=== PATIENT | female | born 1960 | race Caucasian/White ===

== ENCOUNTER 2017-07-19 00:56 | Inpatient (IN) | payer OTHER ==
[2017-07-19] VITALS (13 sets, daily range): BP systolic 124–210; BP diastolic 69–110; PULSE 62–114; RESP 16–18; TEMP 96.5–99.1; O2SAT 89–100
[~2017-07-19] VITALS: Ht 160 cm; Wt 79.9 kg
[~2017-07-19 00:56] MED LIST: CYCL-36 PO; LEVO.2 PO; LISI-357 PO; LORTA5 PO; MEDR4PAK3 PO
--- NOTE | 2017-07-19 01:07 | PD ---
HPI Chief Complaint: Abdominal pain, vomiting Time Seen by Provider: 01:07 Travel History International Travel<30 days: No Contact w/Intl Traveler<30days: No Traveled to known affect area: No History of Present Illness HPI 57-year-old female came to the emergency room with history of vomiting and severe abdominal pain since this morning. Patient says she has vomited multiple times and has been unable to keep anything down. She appeared to be in significant distress when I saw her. She points the pain mainly to her right upper quadrant. She describes her vomitus to be clear to pale yellow color. No aggravating or relieving factors. Patient does drink and had 2 beers last night. She has never had this kind of pain before. She had 3 C- sections in the past. No history of diarrhea or any bowel movements today. [facility] Past Medical History Narrative Medical List of her past medical, surgical, social and family history reviewed from the nursing note. Cancer: Yes (THYROID) Hypertension: Yes Thyroid Disease: Yes (HYPO---THYROIDECTOMY) Menopausal: Yes Past Surgical History Section: Yes (X3) Endocrine Surgery: Yes (THYROIDECTOMY) Social History Alcohol Use: Yes ("WEEKENDS") Tobacco Use: Yes (1 PPD) Substance Use: No Allergies-Medications (Allergen,Severity, Reaction): Coded Allergies: No Known Allergies (Verified Allergy, Unknown, 07/19/17) Comments No known drug allergies. Reported Meds & Prescriptions Reported Meds & Active Scripts Active Reported Levothyroxine (Levothyroxine Sodium) 150 Mcg Tab 150 Mcg PO DAILY Lisinopril 20 Mg Tab 20 Mg PO DAILY Narrative Medication List of her home medications reviewed from the nursing note. Review of Systems Except as stated in HPI: all other systems reviewed are Neg Gastrointestinal: Positive: Nausea, Vomiting, Abdominal Pain Physical Exam Narrative GENERAL: Awake, alert, significant SKIN: Focused skin assessment warm/dry. HEAD: Atraumatic. Normocephalic. EYES: Pupils equal and round. No scleral icterus. No injection or drainage. ENT: No nasal bleeding or discharge. Mucous membranes pink and moist. NECK: Trachea midline. No JVD. CARDIOVASCULAR: Regular rate and rhythm. No murmur appreciated. RESPIRATORY: No accessory muscle use. Clear to auscultation. Breath sounds equal bilaterally. GASTROINTESTINAL: Abdomen is tense and distended. Significant tenderness in the right upper quadrant. Hyperactive bowel sounds. Hepatic and splenic margins not palpable. MUSCULOSKELETAL: No obvious deformities. No clubbing. No cyanosis. No edema. NEUROLOGICAL: Awake and alert. No obvious cranial nerve deficits. Motor grossly within normal limits. Normal speech. PSYCHIATRIC: Appropriate mood and affect; insight and judgment normal. Data Data Last Documented VS Orders Orders Ondansetron Inj (Zofran Inj) (07/19/17 01:41) Ondansetron Inj (Zofran Inj) (07/19/17 01:45) Sodium Chlor 0.9% 1000 Ml Inj (Ns 1000 M (07/19/17 01:45) Complete Blood Count With Diff (07/19/17 02:00) Comprehensive Metabolic Panel (07/19/17 02:00) Lipase (07/19/17 02:00) Prothrombin Time / Inr (Pt) (07/19/17 02:00) Urinalysis - C+S If Indicated (07/19/17 02:00) Ct Abd/Pel W/O Iv Contrast (07/19/17 02:00) Iv Access Insert/Monitor (07/19/17 02:00) Ecg Monitoring (07/19/17 02:00) Oximetry (07/19/17 02:00) Morphine Inj (Morphine Inj) (07/19/17 02:00) Ondansetron Inj (Zofran Inj) (07/19/17 02:00) Sodium Chlor 0.9% 1000 Ml Inj (Ns 1000 M (07/19/17 02:00) Sodium Chloride 0.9% Flush (Ns Flush) (07/19/17 02:00) Ng Gastric Tube Insert/Monitor (07/19/17 02:59) Sodium Chlor 0.9% 1000 Ml Inj (Ns 1000 M (07/19/17 03:15) Morphine Inj (Morphine Inj) (07/19/17 03:30) Admit Order (Ed Use Only) (07/19/17 04:07) Labs Laboratory Tests Test 07/19/17 01:20 White Blood Count 10.4 TH/MM3 Red Blood Count 4.90 MIL/MM3 Hemoglobin 16.1 GM/DL Hematocrit 47.0 % Mean Corpuscular Volume 95.8 FL Mean Corpuscular Hemoglobin 32.9 PG Mean Corpuscular Hemoglobin Concent 34.4 % Red Cell Distribution Width 13.6 % Platelet Count 332 TH/MM3 Mean Platelet Volume 8.4 FL Neutrophils (%) (Auto) 92.3 % Lymphocytes (%) (Auto) 5.6 % Monocytes (%) (Auto) 1.6 % Eosinophils (%) (Auto) 0.0 % Basophils (%) (Auto) 0.5 % Neutrophils # (Auto) 9.5 TH/MM3 Lymphocytes # (Auto) 0.6 TH/MM3 Monocytes # (Auto) 0.2 TH/MM3 Eosinophils # (Auto) 0.0 TH/MM3 Basophils # (Auto) 0.1 TH/MM3 CBC Comment AUTO DIFF Differential Comment AUTO DIFF CONFIRMED Platelet Estimate NORMAL Platelet Morphology Comment NORMAL Red Cell Morphology Comment NORMAL Prothrombin Time 10.3 SEC Prothromb Time International Ratio 1.0 RATIO Urine Collection Type CLEAN CATCH Urine Color YELLOW Urine Turbidity CLOUDY Urine pH 5.5 Urine Specific [place] GREATER/EQUAL 1.030 Urine Protein 30 mg/dL Urine Glucose (UA) NEG mg/dL Urine Ketones 40 mg/dL Urine Occult Blood SMALL Urine Nitrite NEG Urine Bilirubin NEG Urine Urobilinogen 0.2 MG/DL Urine Leukocyte Esterase NEG Urine RBC 0-3 /hpf Urine WBC 0-2 /hpf Urine Squamous Epithelial Cells > 8 /hpf Urine Amorphous Sediment LARGE Urine Bacteria FEW /hpf Urine Mucus MOD /lpf Microscopic Urinalysis Comment CULT NOT INDICATED Blood Urea Nitrogen 11 MG/DL Creatinine 0.87 MG/DL Random Glucose 134 MG/DL Total Protein 9.0 GM/DL Albumin 4.1 GM/DL Calcium Level 10.2 MG/DL Alkaline Phosphatase 73 U/L Aspartate Amino Transf (AST/SGOT) 18 U/L Alanine Aminotransferase (ALT/SGPT) 24 U/L Total Bilirubin 0.3 MG/DL Sodium Level 137 MEQ/L Potassium Level 3.7 MEQ/L Chloride Level 102 MEQ/L Carbon Dioxide Level 25.0 MEQ/L Anion Gap 10 MEQ/L Estimat Glomerular Filtration Rate 67 ML/MIN Lipase 587 U/L MDM Medical Decision Making Medical Screen Exam Complete: Yes Emergency Medical Condition: Yes Medical Record Reviewed: Yes Differential Diagnosis Small bowel obstruction, acute pancreatitis, acute cholecystitis Narrative Course 3:32 AM blood test results are back and patient has significant left shift in her CBC. Chemistry shows mild elevation of her lipase. CAT scan findings were discussed with the radiologist Dr. Morales and as per him it could be either a cecal volvulus versus cecal bascule. Either way these are bowel obstructions. I have ordered for an NG tube placement. Patient has been given pain medication and 3 L of IV fluid bolus for resuscitation. I discussed these findings with the general surgeon Dr. Dinesh Gonzalez. He wants the patient to be transferred to the main hospital and he will see the patient there. Awaiting for the hospitalist to call for admission and transfer. 4:10 AM I discussed the case with the hospitalist who wants the patient to be admitted under the manager human resources service. I discussed the case with Dr. Johnson who accepted the patient. Patient will be transferred soon. Critical Care Narrative Aggregate critical care time was 45 minutes. Time to perform other separately billable procedures was not included in the critical care time. My time did not include minutes spent treating any other patients simultaneously or on activities that did not directly contribute to the patient's treatment. The services I provided to this patient were to treat and/or prevent clinically significant deterioration that could result in: Cecal volvulus versus cecal bascule, fluid resuscitation I provided critical care services requiring my management, as noted below: Chart data review, documentation time, medication orders and management, vital sign assessments/reviewing monitor data, ordering and reviewing lab tests, ordering and interpreting/reviewing x-rays and diagnostic studies, care of the patient and discussion of the patient with the admitting physicians. Procedures EKG Prior to Arrival: No Physician Communication Physician Communication Dr. Dinesh Gonzalez, Dr. Morales, Dr. Johnson Diagnosis Primary Impression: Cecal volvulus Additional Impression: Dehydration Admitting Information Admitting Physician Requests: Deirdre Green MD Jul 19, 2017 01:07
[2017-07-19] MEDS ORDERED: LISI-515 PO (01:32)
[2017-07-19] MEDS ORDERED: LEVO150T7 PO (01:32)
[2017-07-19] MEDS ORDERED: ONDANSETRON HCL 4 MG/2 ML VIAL ONE (01:41)
[2017-07-19] MEDS ORDERED: SODIUM CHLOR 0.9% 1000 ML INJ 1,000 ML IV ONE ×2 (01:45→03:15)
[2017-07-19] MEDS ORDERED: ONDANSETRON HCL 4 MG/2 ML VIAL IV PUSH ONE (01:45)
[2017-07-19] MEDS ORDERED: ONDANSETRON HCL 4 MG/2 ML VIAL IVP ONE (02:00)
[2017-07-19] MEDS ORDERED: MORPHINE SULFATE 4 MG/ML INJ IV PUSH ONE ×2 (02:00→03:30)
[2017-07-19] MEDS ORDERED: SODIUM CHLOR 0.9% 1000 ML INJ 1,000 ML IV SCH (02:00)
[2017-07-19 02:17] LABS: AUTOMATED NEUTROPHIL # 9.5 TH/MM3 (1.8-7.7); BASOPHIL # 0.1 TH/MM3 (0-0.2); BASOPHIL % 0.5 % (0.0-2.0); BLOOD, URINE SMALL (NEG); GLUCOSE,URINE NEG (NEG); HEMOGLOBIN 16.1 GM/DL (11.6-15.3); KETONE, URINE 40 mg/dL (NEG); LYMPH % 5.6 % (9.0-44.0); LYMPHOCYTE # 0.6 TH/MM3 (1.0-4.8); MEAN CELL VOLUME 95.8 FL (80.0-100.0); MEAN CORPUSCULAR HEMOGLOBIN 32.9 PG (27.0-34.0); MEAN CORPUSCULAR HGB CONC 34.4 % (32.0-36.0); MEAN PLATELET VOLUME 8.4 FL (7.0-11.0); MONO % 1.6 % (0.0-8.0); MONOCYTE # 0.2 TH/MM3 (0-0.9); NEUT % 92.3 % (16.0-70.0); NITRITE,URINE NEG (NEG); PH, URINE 5.5 (5.0-8.5); PLATELET COUNT 332 TH/MM3 (150-450); RED CELL DISTRIBUTION WIDTH 13.6 % (11.6-17.2); URINE COLOR YELLOW (YELLW/STRAW); URINE LEUKOCYTE ESTERASE NEG (NEG); WHITE BLOOD COUNT 10.4 TH/MM3 (4.0-11.0)
[2017-07-19 02:21] LABS: BILIRUBIN, URINE NEG (NEG)
[2017-07-19 02:33] LABS: CHLORIDE 102 MEQ/L (98-107); SODIUM (NA) 137 MEQ/L (136-145)
[2017-07-19 02:37] LABS: ALBUMIN 4.1 GM/DL (3.4-5.0); BLOOD UREA NITROGEN 11 MG/DL (7-18); CALCIUM 10.2 MG/DL (8.5-10.1); GLUCOSE,RANDOM 134 MG/DL (74-106)
[2017-07-19 02:38] LABS: PROTHROMBIN TIME - PATIENT 10.3 SEC (9.8-11.6)
[2017-07-19 02:40] LABS: ALT (GPT) 24 U/L (10-53); AST (GOT) 18 U/L (15-37); CREATININE 0.87 MG/DL (0.50-1.00); GLOMERULAR FILTRATION RATE 67 ML/MIN (>89)
[2017-07-19 02:42] LABS: TOTAL BILIRUBIN ADULT 0.3 MG/DL (0.2-1.0)
[2017-07-19 02:43] LABS: ALKALINE PHOSPHATASE 73 U/L (45-117)
[2017-07-19 02:49] LABS: MUCUS URINE MOD /lpf (OCC)
[2017-07-19 02:50] LABS: AMORPHOUS SEDIMENT, URINE LARGE; BACTERIA, URINE FEW /hpf
[2017-07-19 02:51] LABS: RBC, URINE 0-3 /hpf (0-3); SQUAMOUS EPITHELIAL CELL URINE > 8 /hpf (0-5)
--- NOTE | 2017-07-19 02:51 | RADRPT ---
EXAM DATE/TIME: 07/19/2017 02:27 This report includes an Addendum and supersedes previous reports for this exam. [facility] COMPARISON: No previous studies available for comparison. INDICATIONS : Abdominal pain. Vomiting. ORAL CONTRAST: No oral contrast ingested. RADIATION DOSE: 10.86 CTDIvol (mGy) MEDICAL HISTORY : Hypertension. SURGICAL HISTORY : section. ENCOUNTER: Initial ACUITY: 1 day PAIN SCALE: 10/10 LOCATION: Bilateral abdomen. TECHNIQUE: Volumetric scanning of the abdomen and pelvis was performed. Using automated exposure control and ad justment of the mA and/or kV according to patient size, radiation dose was kept as low as reasonably achievable to obtain optimal diagnostic quality images. DICOM format image data is available electro nically for review and comparison. FINDINGS: The examination is abnormal demonstrating a prominent gas-distended loop of bowel underneath the righ t hemidiaphragm measuring 10.7 cm in width. This loop of bowel appears to represent the cecum and po rtion of the right colon. There is some twisting of the mesentery medially. Small bowel loops are n ot distended or stop the left colon and sigmoid colon are normal in appearance. There is a minimal a mount of free fluid in the cul-de-sac and there is some moderate free fluid between this distended lo op of bowel and the right lobe of the liver. The distended bowel does cause a flattening of the righ t lobe liver. No calcified gallstones. The kidneys, liver, spleen, and adrenal glands are unremarka ble for noncontrast technique. No evidence of free intraperitoneal gas. The visualized lower lungs are clear. Osseous structures are intact. CONCLUSION: Large gas-distended loop of bowel between the right lobe liver and hemidiaphragm probably representin g a displaced hypermobile cecum. No dilated loops of small bowel seen. No evidence of free intraper itoneal gas. Moderate amount of free fluid in the right upper quadrant and minimal free fluid in the pelvis. Rainer Mckeon MD on July 19, 2017 at 2:44 Board Certified Radiologist. This report was verified electronically. ADDENDUM: The case has been discussed with Dr. Caballero. The displaced the cecum is in the right upper quadrant underneath the right hemidiaphragm. This is atypical for mesento-axial cecal volvulus where a the d istended cecum is usually in the LEFT upper quadrant. There is, however a curved configuration to th e mesentery in the right upper quadrant and there may be some twisting of the inferior portion of the loop. Differential considerations include loop-type cecal volvulus and cecal bascule, which is also a variant of cecal volvulus.. Rainer Mckeon MD on July 19, 2017 at 3:07 Board Certified Radiologist. This report was verified electronically.
[2017-07-19 02:52] LABS: WBC, URINE 0-2 /hpf (0-5)
[2017-07-19] MEDS: SODIUM CHLORIDE 0.9% FLUSH 10 ML FLUSH IV FLUSH PRN (03:32)
--- NOTE | 2017-07-19 05:16 | RADRPT ---
EXAM DATE/TIME: 07/19/2017 04:42 [facility] COMPARISON: CT ABDOMEN & PELVIS W/O CONTRAST, July 19, 2017, 2:27. INDICATIONS : NG tube placement. MEDICAL HISTORY : Hypertension. SURGICAL HISTORY : section. ENCOUNTER: Initial ACUITY: 1 day PAIN SCORE: 10/10 LOCATION: Bilateral abdomen. FINDINGS: Frontal view of the lower chest and upper abdomen demonstrates gastric tube tip projecting within the stomach. The side port of the gastric tube is 2.2 above the level of the hemidiaphragm. Stable deg ree of distention of the cecum in the right upper quadrant. CONCLUSION: Gastric tube tip projects within the stomach however the side-port is 2.2 cm above the diaphragm. Rainer Mckeon MD on July 19, 2017 at 5:12 Board Certified Radiologist. This report was verified electronically.
[2017-07-19] MEDS ORDERED: LEVOFLOXACIN 500 MG PREMIX INJ 100 ML IV ONE (06:30)
[2017-07-19] MEDS ORDERED: METRONIDAZOLE 500 MG/100 ML ISONTONIC SOLN IV ONE (06:30)
[2017-07-19] MEDS ORDERED: POVIDONE IODINE 5% (ANTISEPSIS KIT) 4 APPLICATIONS EACH NARE PRN (06:45)
[2017-07-19] MEDS ORDERED: SODIUM CHLORID 0.9% 500 ML IV PRN (06:45)
[2017-07-19] MEDS ORDERED: METOPROLOL TARTRATE 25 MG TAB PO PRN (06:45)
[2017-07-19] MEDS ORDERED: CHLORHEXIDINE GLUCONATE 2 % 1 PACK (2 CLOTHS) TOPICAL PRN (06:45)
[2017-07-19] MEDS ORDERED: LACTATED RINGER'S 1000 ML IV PRN (06:45)
--- NOTE | 2017-07-19 06:48 | MB ---
cc: Dinesh Gonzalez MD DATE: 07/19/2017 REASON FOR CONSULTATION: Cecal volvulus with acute abdomen. HISTORY OF PRESENT ILLNESS: Ms. Fowler is a pleasant 57-year-old female who presented to the [facility] emergency department late last night with complaints of a 12-hour history of severe abdominal pain. She was seen and evaluated by Dr. Caballero and was worked up and found to have what is believed to be a cecal volvulus on CAT scan. The patient denies any previous abdominal problems. She states the pain began yesterday morning and was followed by multiple episodes of nausea and vomiting. She states the pain was 10/10. Pain was mainly in her right upper quadrant. She denies any sick contacts. She denies any fever or chills. She reports she did have 2 beers the night before. She reports her only abdominal surgical history is 3 C-sections. She denies any change in bowel habits. She reports her last bowel movement was yesterday. She denies any chest pain or shortness of breath. PAST MEDICAL HISTORY: Thyroid cancer. PAST SURGICAL HISTORY: She had a total thyroidectomy. She has also had 3 C-sections. MEDICATIONS: She takes lisinopril and Synthroid. ALLERGIES: SHE HAS NO KNOWN DRUG ALLERGIES. SOCIAL HISTORY: She admits to a daily cigarette use about a pack a day. She reports a weekend alcohol use. She lives here locally with her family. REVIEW OF SYSTEMS: Please see HPI. PHYSICAL EXAM: VITAL SIGNS: Temperature is 98.6, pulse is 90, blood pressure is 190/90, respiratory rate 20. GENERAL: This is a middle-aged female who appears uncomfortable. HEENT: Pupils equal, round and reactive to light. Sclerae are white. Oropharynx clear and moist. NECK: Supple. No masses. She has a low neck incision well healed. LUNGS: Clear to auscultation bilaterally. HEART: S1, S2. No murmur. ABDOMEN: Distended, tender in the right upper quadrant with voluntary guarding. No bowel sounds are noted. EXTREMITIES: Free range of motion x 4. NEUROLOGIC: She is alert and oriented x 3. LABORATORY DATA: White blood cell count 10, hemoglobin 16, platelet count is 332. Electrolytes are all within normal limits. Elevated glucose at 134. Lipase is 587. LFTs are normal. Imaging shows what appears to be a large distended loop of bowel in the right upper quadrant concerning for a cecal volvulus. No free air. There is some free fluid noted in the pelvis. IMPRESSION: Probable cecal volvulus. PLAN: Immediate exploratory laparotomy was discussed with the patient and she is agreeable. Operating room was notified and she will be brought there immediately. MD MANDO Hull/JOE , 06:33 AM , 06:46 AM
[2017-07-19] MEDS ORDERED: fentaNYL CITRATE 250 MCG/5 ML AMP ONE ×2 (06:50→08:15)
[2017-07-19] MEDS ORDERED: BUPIVACAINE/EPINEPHRINE 0.5% PF 30 ML VIAL ONE (07:11)
[2017-07-19] MEDS ORDERED: CHLORHEXIDINE GLUCONATE 2 % 1 PACK (2 CLOTHS) TOP PRN (07:30)
[2017-07-19] MEDS ORDERED: MISCELLANEOUS NURSING INFORMATION XX SCH (07:30)
[2017-07-19] MEDS ORDERED: RESP: ALBUTEROL 2.5 MG/IPRATROPIUM 0.5 MG NEB (PRN) INH (07:30)
[2017-07-19] MEDS: LACTATED RINGER'S 1000 ML INJ 1,000 ML IV SCH ×3 (08:00→20:43)
[2017-07-19] MEDS ORDERED: MORPHINE SULFATE 4 MG/ML INJ ONE (08:15)
[2017-07-19] MEDS ORDERED: SUGAMMADEX SODIUM 200 MG/2 ML VIAL IV PUSH ONE (08:53)
[2017-07-19] MEDS: cefTRIAXone INJ 1,000 MG in SODIUM CHLORIDE 0.9% INJ 100 ML IV SCH (09:00)
[2017-07-19] MEDS: FAMOTIDINE 20 MG/2 ML VIAL IV PUSH SCH ×2 (09:00→20:42)
[2017-07-19] MEDS ORDERED: DO NOT ADM ANY ANTICOAGULANT DRUGS PRN (09:04)
[2017-07-19] MEDS ORDERED: *morphine SULFATE 10 MG/ML PERIprocedure ONLY ONE (09:10)
[2017-07-19] MEDS ORDERED: Post-op Orders (for Pharmacy) XX ONE (09:15)
[2017-07-19] MEDS ORDERED: ONDANSETRON HCL 4 MG/2 ML VIAL IV PUSH PRN (09:15)
[2017-07-19] MEDS ORDERED: diphenhydrAMINE HCL 50 MG/ML VIAL IVP PRN (09:15)
[2017-07-19] MEDS ORDERED: KETOROLAC TROMETHAMINE 30 MG/ML (IVP) VIAL IVP PRN (09:15)
[2017-07-19] MEDS ORDERED: NALOXONE HCL 0.4 MG/ML AMP IV PUSH PRN (09:15)
--- NOTE | 2017-07-19 09:30 | MP ---
cc: Dinesh Gonzalez MD DATE OF OPERATION: 07/19/2017 DATE OF PROCEDURE: 07/19/2017. PREOPERATIVE DIAGNOSIS: Cecal volvulus. POSTOPERATIVE DIAGNOSIS: Cecal volvulus. PROCEDURE PERFORMED: 1. Exploratory laparotomy. 2. Right hemicolectomy with stapled anastomosis. SURGEON: Dinesh Gonzalez MD ANESTHESIA: General endotracheal. COMPLICATIONS: None. INDICATIONS FOR PROCEDURE: Ms. Fowler is a pleasant 57-year-old female who presented to the emergency department with acute onset of severe abdominal pain. The pain was mainly localized in the right upper quadrant. She underwent CT of the abdomen and pelvis which was concerning for a cecal volvulus. Stat surgical consultation was obtained. The patient was brought to [facility] where she was immediately seen and evaluated. She is advised to go to the operating room immediately for cecal volvulus as she was having a significant amount of pain associated with some nausea and vomiting. On exam, she had a very tender, obvious mass in the right upper quadrant, most consistent with a cecal volvulus. INTRAOPERATIVE FINDINGS: The patient had a cecal volvulus. DETAILS: The patient was identified, brought to the operating room, placed supine on the operating table. After adequate general endotracheal anesthesia was achieved, the abdomen was prepped and draped in standard surgical fashion. 0.25% Marcaine was injected in the skin and subcutaneous tissue. Upper limb midline incision was made. Dissection was carried down through subcutaneous tissue to the midline fascia. Midline fascia was then incised sharply. Peritoneum was then grasped, elevated, and divided with electrocautery Bovie. The abdomen was entered without any problem. An Yang wound retractor was then placed. Immediately, we could identify a very markedly enlarged cecum in the right upper quadrant. This was gently grasped and brought out and de-torsed. Cecum appeared viable; however, it was markedly distended. I elected to go ahead and resect it as this is the definitive surgical treatment of choice. Attention was directed to the terminal ileum which was divided with a MAU 55 stapler. The transverse colon just beyond the hepatic flexure was then divided with a MAU 55 stapler. The white line of Toldt was then mobilized using electrocautery Bovie. The mesentery of the colon was then taken down with the harmonic scalpel. Right colic vessels were identified and oversewn with a 2-0 silk. Dissection proceeded all the way up until the entire right colon was freed. Care was taken to identify and preserve the duodenum during the dissection. The colon was then sent to pathology for analysis. The abdominal cavity was then rinsed out with normal saline solution. Attention was now directed to the anastomosis. The terminal ileum and transverse colon were made at the [id number]. A 3-0 GI silk was used to hold them together proximally and distally. A small enterotomy was made on the tinea of the colon and the antimesenteric border of the small bowel. MAU 55 was used to staple the 2 edges together. The staple line was then inspected, found to be intact without any evidence of bleeding. Enterotomies were then closed with Allis clamps and then stapled with a TA-60 stapler. Staple lines were then oversewn with 3-0 GI silk. Mesenteric defect was then repaired with 3-0 GI silk in a [id number] fashion. The anastomosis was inspected, found to be widely patent. There was no evidence of bleeding. No evidence of intestinal leakage with direct pressure. The small bowel was briefly explored and there were no other gross abnormalities. Small bowel seemed to be actively peristalsing. It was fairly normal size and caliber. By manual palpation, I could feel no abdominal masses in the pelvis, the right upper quadrant or the left upper quadrant. NG tube was checked and positioned on the greater curvature of the stomach. Anastomosis was then checked the second time, was found to be intact. No evidence of leak, no evidence of bleeding. Mesenteric . The mesenteric defect was checked and found to be closed. Anastomosis was then placed in the right upper quadrant. Omentum was then placed over it. The abdominal cavity was then rinsed out with 2 liters of warm saline solution. All laparotomy instrument counts were then obtained and found to be correct. Attention was now directed to closure. Closure was accomplished using a #1 looped PDS in continuous running fashion. Subcutaneous tissue was copiously irrigated out and injected with an additional 0.25% Marcaine along the fascial edges. The wound was then closed with the skin stapling device. The patient tolerated the procedure well and was awakened and brought to recovery in stable condition. Dinesh Raquel Gonzalez MD [facility] , 09:09 AM , 09:29 AM
--- NOTE | 2017-07-19 10:44 | HHI.HP ---
HPI Service Critical Care Medicine Primary Care Physician No Primary Care Physician Admission Diagnosis Cecal volvulus Diagnosis: Chief Complaint: Abdominal pain and vomiting Travel History International Travel<30 Days: No Contact w/Intl Traveler <30 Da: No Traveled to Known Affected Are: No History of Present Illness 57-year-old lady with history of thyroid cancer status post thyroidectomy, and probable history of hypertension since patient is on lisinopril now presented to [place] emergency room complaining on severe abdominal pain that started yesterday morning, associated with multiple episodes of nausea and vomiting. 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 She was transferred to [facility] under the care of watch repairer service and Dr. Gonzalez from surgery was consulted. On arrival, patient was taken immediately to the operating room where she underwent exploratory laparotomy with right hemicolectomy with stapled anastomosis. Patient was seen postop in PACU, she is doing well, awake, abdominal pain is controlled with PEDIATRICIAN ACTIVE PRACTICE, denies shortness of breath, chest pain, palpitations. She is scheduled to go to the surgical floor. Anesthesia record reviewed, EBL 75 cc , received 1600 mL's crystalloid. Review of Systems Constitutional: DENIES: Fever, Weight loss, Chills, Dizziness Eyes: DENIES: Blurred vision, Diplopia, Vision loss, Double Vision Ears, nose, mouth, throat: DENIES: Hearing loss, Nasal discharge, Oral lesions , Throat pain Respiratory: DENIES: Cough, Wheezing, Shortness of breath Cardiovascular: DENIES: Chest pain, Palpitations, Lower Extremity Edema Gastrointestinal: COMPLAINS OF: Abdominal pain, Nausea, Vomiting Musculoskeletal: DENIES: Joint pain, Joint Swelling Hematologic/lymphatic: DENIES: Bruising Neurologic: DENIES: Headache, Seizures, Tremor Past Family Social History Allergies: Coded Allergies: No Known Allergies (Verified Allergy, Unknown, 07/19/17) Past Medical History Thyroid cancer Past Surgical History Thyroidectomy Reported Medications Reported Meds & Active Scripts Active Reported Levothyroxine (Levothyroxine Sodium) 150 Mcg Tab 150 Mcg PO DAILY Lisinopril 20 Mg Tab 20 Mg PO DAILY Active Ordered Medications Current Medications Medications (Trade) Dose Ordered Sig/Bacilio Route Start Time Stop Time Status Last Admin (NS Flush) 2 ml UNSCH PRN IV FLUSH 07/19/17 02:00 07/19/17 03:32 Lactated Ringer's 1,000 ml @ 30 mls/hr Q24H PRN IV 07/19/17 06:45 07/22/17 06:44 07/19/17 06:10 Sodium Chloride 500 ml @ 30 mls/hr [id number] PRN IV 07/19/17 06:45 07/22/17 06:44 (Lopressor) 25 mg PATROL SERGEANT PRN PO 07/19/17 06:45 07/22/17 06:44 (Betadine 5% Antisepsis Kit) 1 applic PATROL SERGEANT PRN EACH NARE 07/19/17 06:45 07/22/17 06:44 (Chlorhexidine 2% Cloth) 3 pack PATROL SERGEANT PRN TOPICAL 07/19/17 06:45 07/22/17 06:44 (Morphine Inj) 2 mg Q2H PRN IV PUSH 07/19/17 07:30 (Pepcid Inj) 20 mg Q12HR IV PUSH 07/19/17 09:00 07/19/17 09:00 (Duoneb Neb) 1 ampule Q4HR NEB PRN INH 07/19/17 07:30 Miscellaneous Information 1 [id number] XX 07/19/17 07:30 (Chlorhexidine 2% Cloth) 3 pack Taper DAILY@04 TOP 07/20/17 04:00 07/16/18 03:59 (Chlorhexidine 2% Cloth) 3 pack UNSCH PRN TOP 07/19/17 07:30 Ceftriaxone Sodium 1000 mg/ Sodium Chloride 100 ml @ 200 mls/hr Q24H IV 07/19/17 09:00 07/19/17 09:00 Metronidazole 100 ml @ 100 mls/hr Q8H IV 07/19/17 15:00 Lactated Ringer's 1,000 ml @ 100 mls/hr Q10H IV 07/19/17 08:00 07/19/17 08:00 (Toradol Inj) 30 mg Q6H PRN IVP 07/19/17 09:15 07/24/17 09:14 (Zofran Inj) 4 mg Q4H PRN IV PUSH 07/19/17 09:15 (Benadryl Inj) 50 mg Q6H PRN IVP 07/19/17 09:15 (Narcan Inj) 0.4 mg UNSCH PRN IV PUSH 07/19/17 09:15 (Morphine 1 Mg/ ml PEDIATRICIAN ACTIVE [facility]ACTICE) 30 mg UNSCH IV 07/19/17 09:15 PEDIATRICIAN ACT[facility]ACTICE Dosage Infused (Pha) 1 Q8HR .XX 07/19/17 14:00 Miscellaneous Information ALL NURSING DEPARTME... UNSCH PRN .XX 07/19/17 09:04 07/20/17 09:03 Family History Unremarkable Social History Smoker, drinks alcohol on the weekends, no drugs Physical Exam Vital Signs Vital Signs Date Time Temp Pulse Resp B/P (MAP) Pulse Ox O2 Delivery O2 Flow Rate FiO2 07/19/17 09:00 97.9 109 20 180/84 (116) 92 Nasal Cannula 2 07/19/17 05:28 07/19/17 04:55 94 16 186/95 (125) 95 Room Air 07/19/17 04:20 98.6 92 16 189/93 (125) 95 Room Air 07/19/17 03:54 16 07/19/17 03:50 98 16 178/98 (124) 94 Room Air 07/19/17 03:20 96 16 185/93 (123) 97 Room Air 07/19/17 02:50 88 16 175/97 (123) 96 Room Air 07/19/17 02:35 16 07/19/17 01:25 16 07/19/17 01:15 114 18 199/110 (139) 98 Room Air 07/19/17 01:10 18 98 Room Air 07/19/17 01:02 97.5 110 18 210/102 (138) 100 Physical Exam General - middle-aged lady, awake, in no distress HEENT - pupils equal, reactive, sclerae anicteric, neck supple, no nuchal rigidity, neck veins not distended, no carotid bruit, MMM CV - regular S1, S2, no murmurs Chest - clear b/l, good air entry, no wheezes Abdomen - soft, tender, distended, BS present, surgical incision site with clean dressing, no hepatomegaly, no splenomegaly Skin - no rashes, no cyanosis Extremities - warm and well perfused, no edema, + peripheral pulses, no clubbing Neuro -awake, alert, oriented 3, moves all extremities Laboratory Laboratory Tests Test 07/19/17 01:20 White Blood Count 10.4 Red Blood Count 4.90 Hemoglobin 16.1 Hematocrit 47.0 Mean Corpuscular Volume 95.8 Mean Corpuscular Hemoglobin 32.9 Mean Corpuscular Hemoglobin Concent 34.4 Red Cell Distribution Width 13.6 Platelet Count 332 Mean Platelet Volume 8.4 Neutrophils (%) (Auto) 92.3 Lymphocytes (%) (Auto) 5.6 Monocytes (%) (Auto) 1.6 Eosinophils (%) (Auto) 0.0 Basophils (%) (Auto) 0.5 Neutrophils # (Auto) 9.5 Lymphocytes # (Auto) 0.6 Monocytes # (Auto) 0.2 Eosinophils # (Auto) 0.0 Basophils # (Auto) 0.1 CBC Comment AUTO DIFF Differential Comment AUTO DIFF CONFIRMED Platelet Estimate NORMAL Platelet Morphology Comment NORMAL Red Cell Morphology Comment NORMAL Prothrombin Time 10.3 Prothromb Time International Ratio 1.0 Urine Collection Type CLEAN CATCH Urine Color YELLOW Urine Turbidity CLOUDY Urine pH 5.5 Urine Specific [place] GREATER/EQUAL 1.030 Urine Protein 30 Urine Glucose (UA) NEG Urine Ketones 40 Urine Occult Blood SMALL Urine Nitrite NEG Urine Bilirubin NEG Urine Urobilinogen 0.2 Urine Leukocyte Esterase NEG Urine RBC 0-3 Urine WBC 0-2 Urine Squamous Epithelial Cells > 8 Urine Amorphous Sediment LARGE Urine Bacteria FEW Urine Mucus MOD Microscopic Urinalysis Comment CULT NOT INDICATED Blood Urea Nitrogen 11 Creatinine 0.87 Random Glucose 134 Total Protein 9.0 Albumin 4.1 Calcium Level 10.2 Alkaline Phosphatase 73 Aspartate Amino Transf (AST/SGOT) 18 Alanine Aminotransferase (ALT/SGPT) 24 Total Bilirubin 0.3 Sodium Level 137 Potassium Level 3.7 Chloride Level 102 Carbon Dioxide Level 25.0 Anion Gap 10 Estimat Glomerular Filtration Rate 67 Lipase 587 Result Diagram: 07/19/1711907/19/17 0120 Imaging Last Impressions Abdomen/Pelvis CT 07/19/17 0200 Signed Impressions: Service Date/Time: Wednesday, July 19, 2017 02:27 - CONCLUSION: Large gas-distended loop of bowel between the right lobe liver and hemidiaphragm probably representing a displaced hypermobile cecum. No dilated loops of small bowel seen. No evidence of free intraperitoneal gas. Moderate amount of free fluid in the right upper quadrant and minimal free fluid in the pelvis. Rainer Mckeon MD ADDENDUM: The case has been discussed with Dr. Caballero. The displaced the cecum is in the right upper quadrant underneath the right hemidiaphragm. This is atypical for mesento-axial cecal volvulus where a the distended cecum is usually in the LEFT upper quadrant. There is, however a curved configuration to the mesentery in the right upper quadrant and there may be some twisting of the inferior portion of the loop. Differential considerations include loop-type cecal volvulus and cecal bascule, which is also a variant of cecal volvulus.. Rainer Mckeon MD Abdomen X-Ray 07/19/17 0000 Signed Impressions: Service Date/Time: Wednesday, July 19, 2017 04:42 - CONCLUSION: Gastric tube tip projects within the stomach however the side-port is 2.2 cm above the diaphragm. Rainer Mckeon MD Caprini VTE Risk Assessment Caprini VTE Risk Assessment: Mod/High Risk (score >= 2) Caprini Risk Assessment Model Point Value = 1 Point Value = 2 Point Value = 3 Point Value = 5 Age 41-60 Minor surgery BMI > 25 kg/m2 Swollen legs Varicose veins or History of unexplained or recurrent spontaneous Oral contraceptives or hormone replacement Sepsis (< 1 month) Serious lung disease, including pneumonia (< 1 month) Abnormal pulmonary function Acute myocardial infarction Congestive heart failure (< 1 month) History of inflammatory bowel disease Medical patient at bed rest Age 61-74 Arthroscopic surgery Major open surgery (> 45 min) Laparoscopic surgery (> 45 min) Malignancy Confined to bed (> 72 hours) Immobilizing plaster cast Central venous access Age >= 75 History of VTE Family history of VTE Factor V Leiden Prothrombin [id number] Lupus anticoagulant Anticardiolipin antibodies Elevated serum homocysteine Heparin-induced thrombocytopenia Other congenital or acquired thrombophilia Stroke (< 1 month) Elective arthroplasty Hip, pelvis, or leg fracture Acute spinal cord injury (< 1 month) Prophylaxis Regimen Total Risk Factor Score Risk Level Prophylaxis Regimen 0-1 Low Early ambulation 2 Moderate Order ONE of the following: *Sequential Compression Device (SCD) *Heparin 5000 units SQ BID 3-4 Higher Order ONE of the following medications: *Heparin 5000 units SQ TID *Enoxaparin/Lovenox 40 mg SQ daily (WT < 150 kg, CrCl > 30 mL/min) *Enoxaparin/Lovenox 30 mg SQ daily (WT < 150 kg, CrCl > 10-29 mL/min) *Enoxaparin/Lovenox 30 mg SQ BID (WT < 150 kg, CrCl > 30 mL/min) AND/OR *Sequential Compression Device (SCD) 5 or more Highest Order ONE of the following medications: *Heparin 5000 units SQ TID (Preferred with Epidurals) *Enoxaparin/Lovenox 40 mg SQ daily (WT < 150 kg, CrCl > 30 mL/min) *Enoxaparin/Lovenox 30 mg SQ daily (WT < 150 kg, CrCl > 10-29 mL/min) *Enoxaparin/Lovenox 30 mg SQ BID (WT < 150 kg, CrCl > 30 mL/min) AND *Sequential Compression Device (SCD) Assessment and Plan Assessment and Plan 1. 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 History of thyroid cancer post thyroidectomy, on hormone replacement 3. Probably history of hypertension 1. Gentle IV hydration 2. Continue antibiotics for now but anticipate very short course. Probably can be stopped over the next 2 days 3. Monitor urine output 4. Pain control with morphine PEDIATRICIAN ACTIVE PRACTICE 5. Incentive spirometry 6. Restart Synthroid when able to take p.o. 7. DVT prophylaxis with SCDs. Start Lovenox when okay with surgery 8. GI prophylaxis with famotidine 9. N.p.o. for now We will ask hospitalist service to take over the medical management of patient. Please call back with any questions or if additional help is needed. Thank you Anthony Sandoval MD Jul 19, 2017 10:44
[2017-07-19] MEDS ORDERED: ROCURONIUM INJ 50 MG/5 ML SYRINGE IV PUSH ONE (12:00)
[2017-07-19] MEDS ORDERED: SUCCINYLCHOLINE CHLORIDE 100 MG/5 ML SYRINGE IV PUSH ONE (12:00)
[2017-07-19] MEDS ORDERED: ONDANSETRON HCL 4 MG/2 ML VIAL IV ONE (12:00)
[2017-07-19] MEDS ORDERED: NEOSTIGMINE 5 MG/5 ML SYRINGE IV PUSH ONE (12:00)
[2017-07-19] MEDS ORDERED: PHENYLEPH/NS 1000 MCG/10 ML SYR IV ONE (12:00)
[2017-07-19] MEDS ORDERED: NORMOSOL R INJ 1,000 ML IV ONE (12:00)
[2017-07-19] MEDS ORDERED: LIDOCAINE HCL 1% PF 5 ML SYRINGE OTHER ONE (12:00)
[2017-07-19] MEDS ORDERED: GLYCOPYRROLATE 1 MG/5 ML SYRINGE IV PUSH ONE (12:00)
[2017-07-19] MEDS ORDERED: DEXAMETHASONE SOD PHOS 4 MG/ML VIAL IV ONE (12:00)
[2017-07-19] MEDS ORDERED: PROPOFOL 200 MG/20 ML AMP IV ONE (12:00)
[2017-07-19] MEDS: MORPHINE SULFATE 30 MG/30 ML PCA IV SCH ×2 (12:03→22:53)
[2017-07-19] MEDS: PCA - TOTAL MG MORPHINE DELIVERED PER SHIFT SCH ×2 (14:00→21:52)
[2017-07-19] MEDS: metroNIDAZOLE 500 MG INJ 100 ML IV SCH ×2 (15:59→22:52)
[2017-07-20] VITALS (7 sets, daily range): BP systolic 102–213; BP diastolic 58–95; PULSE 62–85; RESP 14–20; TEMP 96.6–97.9; O2SAT 91–97
[2017-07-20] MEDS: CHLORHEXIDINE GLUCONATE 2 % 1 PACK (2 CLOTHS) TOP SCH ×2 (02:21→22:46)
[2017-07-20] MEDS: LACTATED RINGER'S 1000 ML INJ 1,000 ML IV SCH ×2 (02:21→11:49)
[2017-07-20 04:51] LABS: AUTOMATED NEUTROPHIL # 7.1 TH/MM3 (1.8-7.7); BASOPHIL % 0.2 % (0.0-2.0); EOSINOPHIL % 0.2 % (0.0-4.0); HEMATOCRIT 34.3 % (35.0-46.0); HEMOGLOBIN 11.6 GM/DL (11.6-15.3); LYMPH % 11.5 % (9.0-44.0); MEAN CELL VOLUME 98.3 FL (80.0-100.0); MEAN CORPUSCULAR HEMOGLOBIN 33.2 PG (27.0-34.0); MEAN CORPUSCULAR HGB CONC 33.8 % (32.0-36.0); MONOCYTE # 0.6 TH/MM3 (0-0.9); NEUT % 81.1 % (16.0-70.0); PLATELET COUNT 236 TH/MM3 (150-450); RED BLOOD COUNT 3.49 MIL/MM3 (4.00-5.30); RED CELL DISTRIBUTION WIDTH 13.8 % (11.6-17.2); WHITE BLOOD COUNT 8.7 TH/MM3 (4.0-11.0)
[2017-07-20 05:13] LABS: ALBUMIN 2.9 GM/DL (3.4-5.0); AST (GOT) 30 U/L (15-37); BICARBONATE 26.7 MEQ/L (21.0-32.0); BLOOD UREA NITROGEN 9 MG/DL (7-18); CALCIUM 8.5 MG/DL (8.5-10.1); CHLORIDE 110 MEQ/L (98-107); GLOMERULAR FILTRATION RATE 103 ML/MIN (>89); GLUCOSE,RANDOM 93 MG/DL (74-106); MAGNESIUM 1.8 MG/DL (1.5-2.5); SODIUM (NA) 144 MEQ/L (136-145)
[2017-07-20 05:15] LABS: ALT (GPT) 18 U/L (10-53); PHOSPHORUS 2.4 MG/DL (2.5-4.9)
[2017-07-20 05:17] LABS: ALKALINE PHOSPHATASE 48 U/L (45-117); TOTAL BILIRUBIN ADULT 0.4 MG/DL (0.2-1.0); TOTAL PROTEIN 6.1 GM/DL (6.4-8.2)
[2017-07-20] MEDS: PCA - TOTAL MG MORPHINE DELIVERED PER SHIFT SCH ×3 (06:00→22:00)
[2017-07-20] MEDS: metroNIDAZOLE 500 MG INJ 100 ML IV SCH ×3 (06:37→22:46)
[2017-07-20] MEDS: cefTRIAXone INJ 1,000 MG in SODIUM CHLORIDE 0.9% INJ 100 ML IV SCH (10:20)
[2017-07-20] MEDS: FAMOTIDINE 20 MG/2 ML VIAL IV PUSH SCH ×2 (10:20→20:49)
[2017-07-20] MEDS: MORPHINE SULFATE 30 MG/30 ML PCA IV SCH (11:47)
[2017-07-20] MEDS: LISINOPRIL 20 MG TAB PO SCH (11:49)
--- NOTE | 2017-07-20 14:46 | HHI.PR ---
Subjective Subjective Notes Resting in bed Wants NGT out Objective Vitals/I&O Vital Signs Date Time Temp Pulse Resp B/P (MAP) Pulse Ox O2 Delivery O2 Flow Rate FiO2 07/20/17 12:00 97.8 85 20 181/86 (117) 94 07/19/17 22:20 Nasal Cannula 1.00 Labs Laboratory Tests Test 07/20/17 03:50 White Blood Count 8.7 Red Blood Count 3.49 Hemoglobin 11.6 Hematocrit 34.3 Mean Corpuscular Volume 98.3 Mean Corpuscular Hemoglobin 33.2 Mean Corpuscular Hemoglobin Concent 33.8 Red Cell Distribution Width 13.8 Platelet Count 236 Mean Platelet Volume 8.0 Neutrophils (%) (Auto) 81.1 Lymphocytes (%) (Auto) 11.5 Monocytes (%) (Auto) 7.0 Eosinophils (%) (Auto) 0.2 Basophils (%) (Auto) 0.2 Neutrophils # (Auto) 7.1 Lymphocytes # (Auto) 1.0 Monocytes # (Auto) 0.6 Eosinophils # (Auto) 0.0 Basophils # (Auto) 0.0 CBC Comment DIFF FINAL Differential Comment Blood Urea Nitrogen 9 Creatinine 0.60 Random Glucose 93 Total Protein 6.1 Albumin 2.9 Calcium Level 8.5 Phosphorus Level 2.4 Magnesium Level 1.8 Alkaline Phosphatase 48 Aspartate Amino Transf (AST/SGOT) 30 Alanine Aminotransferase (ALT/SGPT) 18 Total Bilirubin 0.4 Sodium Level 144 Potassium Level 3.7 Chloride Level 110 Carbon Dioxide Level 26.7 Anion Gap 7 Estimat Glomerular Filtration Rate 103 Cardiovascular: Regular Lungs: Clear Abdomen: Other (Dry dressing in place ), Post-op tenderness Extremities: No edema Narrative Exam Moreno in place A/P Assessment and Plan 57 year old female POD1 ex lap for cecal volvulus -DC NGT -Clear liquids -DC More[place] -OOB and mobilize -BATTERY STARTER for pain control -Decrease IVF Nanette Roman TONGUE AND GROOVE MACHINE SETTER/Farm Manager TONGUE AND GROOVE MACHINE SETTER Jul 20, 2017 14:46
--- NOTE | 2017-07-20 14:54 | HHI.PR ---
Subjective Remarks Patient seen this morning around 9 AM. She says she is feeling all right. Reports abdominal pain is controlled. Denies any chest pain or shortness of breath. No bowel movements or flatus yet Objective Vital Signs Date Time Temp Pulse Resp B/P (MAP) Pulse Ox O2 Delivery O2 Flow Rate FiO2 07/20/17 12:00 97.8 85 20 181/86 (117) 94 07/20/17 11:47 17 07/20/17 11:34 16 07/20/17 08:00 96.9 73 20 143/73 (96) 97 07/20/17 04:00 97.5 73 16 147/78 (101) 93 07/20/17 00:20 97.9 71 16 213/95 (134) 92 07/19/17 22:20 95 Nasal Cannula 1.00 07/19/17 16:47 96.9 71 18 128/79 (95) 97 I/O 07/19/17 07/19/17 07/19/17 07/20/17 07/20/17 07/20/17 07:00 15:00 23:00 07:00 15:00 23:00 Intake Total 3000 ml 1600 ml 1445 ml Output Total 110 ml 145 ml 300 ml 300 ml Balance 2890 ml 1455 ml -300 ml 1145 ml Intake IV Total 3000 ml 1600 ml 1445 ml Output Urine Total 70 ml Gastric Drainage Total 110 ml 300 ml 300 ml Estimated Blood Loss 75 ml Result Diagram: 07/20/17 0350 07/20/17 0350 Objective Remarks GENERAL: sitting up in bed. Appears comfortable. Alert and oriented 3. SKIN: Warm and dry. HEAD: Normocephalic. EYES: No scleral icterus. No injection or drainage. NECK: Supple, trachea midline. No JVD. CARDIOVASCULAR: Regular rate and rhythm without murmurs, gallops, or rubs. RESPIRATORY: Breath sounds equal bilaterally. No accessory muscle use. GASTROINTESTINAL: Abdomen soft, non-tender, nondistended. MUSCULOSKELETAL: No cyanosis, or edema. BACK: Nontender without obvious deformity. No CVA tenderness. 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 // History of thyroid cancer post thyroidectomy, on hormone replacement = Continue thyroid hormone. // history of hypertension = 07/20. Systolic blood pressure elevated in the 180s start home lisinopril. Continue to monitor blood pressure //Tobacco use. Divided cessation counseling. Patient is not at all interested //Binge drinking disorder without withdrawal. Patient counseled on appropriate alcohol limits. Patient again not interested. //Prophylaxis. SCDs. Anticoagulation as per surgical service Discharge Planning Awaiting return of bowel function. Home with home health when cleared by general surgery. Martinez Toscano MD Jul 20, 2017 14:54
[2017-07-21] VITALS (7 sets, daily range): BP systolic 117–188; BP diastolic 68–99; PULSE 65–85; RESP 16–18; TEMP 96.9–98.8; O2SAT 91–98
[2017-07-21] MEDS: LACTATED RINGER'S 1000 ML INJ 1,000 ML IV SCH ×3 (04:59→20:30)
[2017-07-21] MEDS: PCA - TOTAL MG MORPHINE DELIVERED PER SHIFT SCH ×2 (06:00→22:00)
[2017-07-21] MEDS: LEVOTHYROXINE SODIUM 150 MCG TAB PO SCH (06:00)
[2017-07-21 06:20] LABS: AUTOMATED NEUTROPHIL # 5.7 TH/MM3 (1.8-7.7); BASOPHIL % 0.6 % (0.0-2.0); EOSINOPHIL # 0.1 TH/MM3 (0-0.4); EOSINOPHIL % 1.8 % (0.0-4.0); HEMATOCRIT 29.7 % (35.0-46.0); LYMPH % 14.4 % (9.0-44.0); MEAN CELL VOLUME 98.9 FL (80.0-100.0); MEAN CORPUSCULAR HEMOGLOBIN 33.3 PG (27.0-34.0); MEAN CORPUSCULAR HGB CONC 33.7 % (32.0-36.0); MEAN PLATELET VOLUME 8.3 FL (7.0-11.0); MONO % 4.6 % (0.0-8.0); MONOCYTE # 0.3 TH/MM3 (0-0.9); NEUT % 78.6 % (16.0-70.0); PLATELET COUNT 204 TH/MM3 (150-450); RED CELL DISTRIBUTION WIDTH 13.5 % (11.6-17.2); WHITE BLOOD COUNT 7.2 TH/MM3 (4.0-11.0)
[2017-07-21] MEDS: metroNIDAZOLE 500 MG INJ 100 ML IV SCH ×3 (06:28→22:30)
[2017-07-21] MEDS: MORPHINE SULFATE 4 MG/ML INJ IV PUSH PRN ×4 (08:12→15:37)
[2017-07-21] MEDS: FAMOTIDINE 20 MG/2 ML VIAL IV PUSH SCH (08:12)
[2017-07-21] MEDS: cefTRIAXone INJ 1,000 MG in SODIUM CHLORIDE 0.9% INJ 100 ML IV SCH (08:13)
[2017-07-21] MEDS: LISINOPRIL 20 MG TAB PO SCH (08:13)
--- NOTE | 2017-07-21 14:17 | HHI.PR ---
Subjective Subjective Notes Resting in bed Has been ambulating in the room today Not feeling hungry Objective Vitals/I&O Vital Signs Date Time Temp Pulse Resp B/P (MAP) Pulse Ox O2 Delivery O2 Flow Rate FiO2 07/21/17 12:00 97.3 76 17 157/78 (104) 98 07/21/17 10:33 Nasal Cannula 2.00 07/21/17 10:15 21 Labs Laboratory Tests Test 07/21/17 05:25 White Blood Count 7.2 Red Blood Count 3.00 Hemoglobin 10.0 Hematocrit 29.7 Mean Corpuscular Volume 98.9 Mean Corpuscular Hemoglobin 33.3 Mean Corpuscular Hemoglobin Concent 33.7 Red Cell Distribution Width 13.5 Platelet Count 204 Mean Platelet Volume 8.3 Neutrophils (%) (Auto) 78.6 Lymphocytes (%) (Auto) 14.4 Monocytes (%) (Auto) 4.6 Eosinophils (%) (Auto) 1.8 Basophils (%) (Auto) 0.6 Neutrophils # (Auto) 5.7 Lymphocytes # (Auto) 1.0 Monocytes # (Auto) 0.3 Eosinophils # (Auto) 0.1 Basophils # (Auto) 0.0 CBC Comment DIFF FINAL Differential Comment Cardiovascular: Regular Lungs: Clear Abdomen: Other (incision with dressing in place; mildly distended ) Extremities: No edema A/P Assessment and Plan 57 year old female POD2 ex lap for cecal volvulus -Continue clear liquids until bowel function returns -OOB and mobilize -DOCK PUMPER for pain control -Decrease IVF -OOB and ambulate -IS Nanette Roman/Linen Sorter CARD HANGER Jul 21, 2017 14:17
[2017-07-21] MEDS ORDERED: NALOXONE HCL 0.4 MG/ML AMP IV PUSH PRN ×2 (17:15→18:30)
[2017-07-21] MEDS ORDERED: MORPHINE SULFATE 2 MG/ML INJ IV PUSH PRN ×3 (17:15)
--- NOTE | 2017-07-21 17:28 | HHI.PR ---
Subjective Remarks follow-up for cecal volvulus status post surgery. Seen this morning. Says she is feeling a little better today. NG tube is out. Denies any chest pain or shortness of breath. Denies any nausea or vomiting. Objective Vital Signs Date Time Temp Pulse Resp B/P (MAP) Pulse Ox O2 Delivery O2 Flow Rate FiO2 07/21/17 16:00 97.9 76 17 177/88 (117) 92 07/21/17 12:00 97.3 76 17 157/78 (104) 98 07/21/17 10:33 Nasal Cannula 2.00 07/21/17 10:15 21 07/21/17 08:00 96.9 76 17 156/83 (107) 91 07/21/17 04:00 97.6 68 16 132/69 (90) 93 07/21/17 00:00 97.9 65 16 117/68 (84) 93 07/20/17 22:37 94 07/20/17 20:40 Room Air 07/20/17 20:00 97.7 62 14 102/58 (73) 93 07/20/17 18:55 95 Room Air I/O 07/20/17 07/20/17 07/20/17 07/21/17 07/21/17 07/21/17 07:00 15:00 23:00 07:00 15:00 23:00 Intake Total 1445 ml 1160 ml 560 ml Output Total 300 ml 300 ml 750 ml Balance -300 ml 1145 ml 410 ml 560 ml Intake Oral 1160 ml 560 ml IV Total 1445 ml Output Urine Total 750 ml Gastric Drainage Total 300 ml 300 ml # Voids 3 # Bowel Movements 0 0 Result Diagram: 07/21/17 0525 07/20/17 0350 Objective Remarks GENERAL: sitting up in bed. Appears comfortable. Alert and oriented 3. SKIN: Warm and dry. HEAD: Normocephalic. EYES: No scleral icterus. No injection or drainage. NECK: Supple, trachea midline. No JVD. CARDIOVASCULAR: Regular rate and rhythm without murmurs, gallops, or rubs. RESPIRATORY: Breath sounds equal bilaterally. No accessory muscle use. GASTROINTESTINAL: Abdomen soft, non-tender, nondistended. postsurgical incision dressed. Clean dry and intact. Abdomen slightly distended. Positive bowel sounds. No rebound or guarding MUSCULOSKELETAL: No cyanosis, or edema. BACK: Nontender without obvious deformity. No CVA tenderness. A/P Assessment and Plan === 07/21/ //Cecal volvulus. Improving. NG tube out. Transition to by mouth medications with IV morphine for breakthrough. Appreciate general surgery assistance. //Anemia. Hemoglobin 10 from 16 on admission. Likely hemoconcentrated on admission, hemodiluted now. No signs of bleeding. Recheck tomorrow. //Blood pressure elevated. Start Vasotec as necessary. 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 = 07/20 Improving. NG tube out. Transition to by mouth medications with IV morphine for breakthrough. Appreciate general surgery assistance. // History of thyroid cancer post thyroidectomy, on hormone replacement = Continue thyroid hormone. // history of hypertension = 07/20. Systolic blood pressure elevated in the 180s start home lisinopril. Continue to monitor blood pressure = 07/21. Blood pressure elevated. Start Vasotec as necessary. Go down to KVO on fluids //Tobacco use. Divided cessation counseling. Patient is not at all interested //Anemia. Hemoglobin 10 from 16 on admission. Likely hemoconcentrated on admission, hemodiluted now. No signs of bleeding. Recheck tomorrow. //Binge drinking disorder without withdrawal. Patient counseled on appropriate alcohol limits. Patient again not interested. //Prophylaxis. SCDs. Anticoagulation as per surgical service Discharge Planning Awaiting return of bowel function. Home with home health when cleared by general surgery. Martinez Toscano MD Jul 21, 2017 17:28
[2017-07-21] MEDS ORDERED: ENALAPRILAT 1.25 MG/ML VIAL IV PUSH PRN (17:30)
[2017-07-21] MEDS ORDERED: MORPHINE SULFATE 30 MG/30 ML PCA IV SCH ×3 (18:30→20:15)
[2017-07-21] MEDS ORDERED: DEXTROSE 50% IN WATER 50 ML SYRINGE IV ONE (18:45)
[2017-07-22] VITALS (8 sets, daily range): BP systolic 156–202; BP diastolic 88–95; PULSE 74–88; RESP 16–18; TEMP 97.2–98.1; O2SAT 91–100
[2017-07-22] MEDS: PCA - TOTAL MG MORPHINE DELIVERED PER SHIFT SCH ×3 (06:00→21:34)
[2017-07-22] MEDS: metroNIDAZOLE 500 MG INJ 100 ML IV SCH ×3 (06:03→22:21)
[2017-07-22] MEDS: LEVOTHYROXINE SODIUM 150 MCG TAB PO SCH (06:03)
[2017-07-22 07:53] LABS: AUTOMATED NEUTROPHIL # 6.9 TH/MM3 (1.8-7.7); BASOPHIL % 0.2 % (0.0-2.0); EOSINOPHIL # 0.1 TH/MM3 (0-0.4); HEMOGLOBIN 11.2 GM/DL (11.6-15.3); LYMPHOCYTE # 0.5 TH/MM3 (1.0-4.8); MEAN CELL VOLUME 97.1 FL (80.0-100.0); MEAN CORPUSCULAR HEMOGLOBIN 33.9 PG (27.0-34.0); MEAN CORPUSCULAR HGB CONC 34.9 % (32.0-36.0); MEAN PLATELET VOLUME 8.5 FL (7.0-11.0); MONO % 4.8 % (0.0-8.0); MONOCYTE # 0.4 TH/MM3 (0-0.9); PLATELET COUNT 223 TH/MM3 (150-450); RED CELL DISTRIBUTION WIDTH 13.4 % (11.6-17.2); WHITE BLOOD COUNT 7.9 TH/MM3 (4.0-11.0)
[2017-07-22] MEDS: ONDANSETRON HCL 4 MG/2 ML VIAL IV PUSH PRN ×3 (08:23→20:58)
[2017-07-22] MEDS: LISINOPRIL 20 MG TAB PO SCH (08:24)
[2017-07-22] MEDS: cefTRIAXone INJ 1,000 MG in SODIUM CHLORIDE 0.9% INJ 100 ML IV SCH (08:24)
[2017-07-22] MEDS: SODIUM CHLORIDE 0.9% FLUSH 10 ML FLUSH IV FLUSH PRN (08:25)
[2017-07-22 08:33] LABS: ALBUMIN 2.5 GM/DL (3.4-5.0); BICARBONATE 27.4 MEQ/L (21.0-32.0); CALCIUM 8.4 MG/DL (8.5-10.1); CREATININE 0.41 MG/DL (0.50-1.00); MAGNESIUM 1.6 MG/DL (1.5-2.5); PHOSPHORUS 2.8 MG/DL (2.5-4.9)
--- NOTE | 2017-07-22 08:50 | HHI.PR ---
Subjective Remarks Follow-up abdominal pain, nausea. The patient states that she feels a little better today. States that she was in a lot of pain yesterday and last night. [facility] pump restarted this morning. No chest pain or dyspnea. She has had a lot of nausea as well. No bowel movements or flatus. Objective Vitals Vital Signs Date Time Temp Pulse Resp B/P (MAP) Pulse Ox O2 Delivery O2 Flow Rate FiO2 07/22/17 08:00 97.6 74 16 202/94 (130) 96 07/22/17 06:00 4 07/22/17 05:13 169/91 (117) 07/22/17 04:38 98.1 75 18 182/95 (124) 95 07/22/17 00:30 177/89 (118) 07/21/17 23:35 98.2 77 18 188/99 (128) 94 07/21/17 22:00 8 07/21/17 21:10 92 Room Air 07/21/17 20:00 98.8 85 18 186/90 (122) 92 07/21/17 18:58 18 07/21/17 16:00 97.9 76 17 177/88 (117) 92 07/21/17 12:00 97.3 76 17 157/78 (104) 98 07/21/17 10:33 Nasal Cannula 2.00 07/21/17 10:15 21 I/O 07/21/17 07/21/17 07/21/17 07/22/17 07/22/17 07/22/17 07:00 15:00 23:00 07:00 15:00 23:00 Intake Total 560 ml 480 ml 1161 ml 915 ml Balance 560 ml 480 ml 1161 ml 915 ml Intake Oral 560 ml 480 ml 240 ml 360 ml IV Total 921 ml 555 ml # Voids 3 5 1 2 # Bowel Movements 0 0 0 Result Diagram: 07/22/17 0645 07/22/17 0645 Imaging Last Impressions Abdomen/Pelvis CT 07/19/17 0200 Signed Impressions: Service Date/Time: Wednesday, July 19, 2017 02:27 - CONCLUSION: Large gas-distended loop of bowel between the right lobe liver and hemidiaphragm probably representing a displaced hypermobile cecum. No dilated loops of small bowel seen. No evidence of free intraperitoneal gas. Moderate amount of free fluid in the right upper quadrant and minimal free fluid in the pelvis. Rainer Mckeon MD ADDENDUM: The case has been discussed with Dr. Caballero. The displaced the cecum is in the right upper quadrant underneath the right hemidiaphragm. This is atypical for mesento-axial cecal volvulus where a the distended cecum is usually in the LEFT upper quadrant. There is, however a curved configuration to the mesentery in the right upper quadrant and there may be some twisting of the inferior portion of the loop. Differential considerations include loop-type cecal volvulus and cecal bascule, which is also a variant of cecal volvulus.. Rainer Mckeon MD Abdomen X-Ray 07/19/17 0000 Signed Impressions: Service Date/Time: Wednesday, July 19, 2017 04:42 - CONCLUSION: Gastric tube tip projects within the stomach however the side-port is 2.2 cm above the diaphragm. Rainer Mckeon MD Objective Remarks General: No acute distress. Heart: Regular rate and rhythm. No murmur. Lungs: Clear to auscultation bilaterally. No wheezes, rales, or rhonchi. Breathing is nonlabored. Abdomen: Soft, appropriately tender to palpation, moderately distended. Extremities: No lower extremity edema. Psych: Alert and oriented. Procedures 07/19/17 exploratory laparotomy, right hemicolectomy with stapled anastomosis Urinary Catheter: No Vascular Central Line Catheter: No A/P Assessment and Plan 1. 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 Management per surgery. Continue pain control per general surgery. Await return of bowel function. Clear liquid diet. Continue antiemetics. 2. Anemia: H&H improved. Likely lower secondary to hemodilution. Monitor labs. 3. Hypertension: Blood pressure remains elevated. Vasotec as needed. Continue home lisinopril dose. Add amlodipine. 4. Hypokalemia: Supplement potassium. Recheck labs in the morning. 5. Tobacco abuse: Patient counseled to quit smoking. 6. Binge drinking disorder without withdrawal: Patient has been counseled. 7. DVT prophylaxis: SCDs. Anticoagulation per general surgery. Discharge Planning Home with home health when cleared by general surgery. Awaiting return of bowel function. Tha Chris MD Jul 22, 2017 08:50
[2017-07-22] MEDS ORDERED: POTASSIUM CHLORIDE 10 MEQ CAP PO ONE (09:00)
[2017-07-22] MEDS: NS + KCL 20 MEQ INJ 1,000 ML IV SCH (12:27)
[2017-07-22] MEDS: amLODIPine BESYLATE 5 MG TAB PO SCH (12:27)
--- NOTE | 2017-07-22 14:33 | HHI.PR ---
Subjective Subjective Notes Patient is doing better today than yesterday. She has moved her bowels. Her pain is better controlled. She wants to try some soft foods. Objective Vitals/I&O Vital Signs Date Time Temp Pulse Resp B/P (MAP) Pulse Ox O2 Delivery O2 Flow Rate FiO2 07/22/17 13:13 17 07/22/17 12:00 97.8 74 160/88 (112) 99 07/21/17 21:10 Room Air 07/21/17 10:33 2.00 07/21/17 10:15 21 Labs Laboratory Tests Test 07/22/17 06:45 White Blood Count 7.9 Red Blood Count 3.30 Hemoglobin 11.2 Hematocrit 32.0 Mean Corpuscular Volume 97.1 Mean Corpuscular Hemoglobin 33.9 Mean Corpuscular Hemoglobin Concent 34.9 Red Cell Distribution Width 13.4 Platelet Count 223 Mean Platelet Volume 8.5 Neutrophils (%) (Auto) 88.0 Lymphocytes (%) (Auto) 6.0 Monocytes (%) (Auto) 4.8 Eosinophils (%) (Auto) 1.0 Basophils (%) (Auto) 0.2 Neutrophils # (Auto) 6.9 Lymphocytes # (Auto) 0.5 Monocytes # (Auto) 0.4 Eosinophils # (Auto) 0.1 Basophils # (Auto) 0.0 CBC Comment DIFF FINAL Differential Comment Blood Urea Nitrogen 4 Creatinine 0.41 Random Glucose 82 Albumin 2.5 Calcium Level 8.4 Phosphorus Level 2.8 Magnesium Level 1.6 Sodium Level 138 Potassium Level 3.1 Chloride Level 99 Carbon Dioxide Level 27.4 Anion Gap 12 Estimat Glomerular Filtration Rate 160 Cardiovascular: Regular Lungs: Clear Abdomen: Other (Mildly distended. Dry occlusive dressing in the upper midline with minimal drainage. 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 Patient is doing pretty well. Plan soft diet. Patient's potassium was 3.1 and already supplemented by Dr. Chris of the hospitalist service. Harry Saldana MD Jul 22, 2017 14:33
[2017-07-23] VITALS (7 sets, daily range): BP systolic 129–159; BP diastolic 72–82; PULSE 66–89; RESP 16–18; TEMP 97.4–97.9; O2SAT 92–96
[2017-07-23] MEDS: PROCHLORPERAZINE INJ 10 MG/2 ML VIAL IV PUSH PRN ×4 (01:09→19:49)
[2017-07-23] MEDS: PCA - TOTAL MG MORPHINE DELIVERED PER SHIFT SCH (06:00)
[2017-07-23] MEDS: metroNIDAZOLE 500 MG INJ 100 ML IV SCH (06:09)
[2017-07-23] MEDS: LEVOTHYROXINE SODIUM 150 MCG TAB PO SCH (06:09)
[2017-07-23 07:15] LABS: AUTOMATED NEUTROPHIL # 5.3 TH/MM3 (1.8-7.7); BASOPHIL % 0.4 % (0.0-2.0); EOSINOPHIL # 0.1 TH/MM3 (0-0.4); EOSINOPHIL % 1.3 % (0.0-4.0); HEMATOCRIT 35.5 % (35.0-46.0); LYMPH % 10.1 % (9.0-44.0); LYMPHOCYTE # 0.7 TH/MM3 (1.0-4.8); MEAN CELL VOLUME 97.7 FL (80.0-100.0); MEAN CORPUSCULAR HEMOGLOBIN 33.1 PG (27.0-34.0); MEAN CORPUSCULAR HGB CONC 33.9 % (32.0-36.0); MEAN PLATELET VOLUME 8.7 FL (7.0-11.0); MONO % 9.8 % (0.0-8.0); MONOCYTE # 0.7 TH/MM3 (0-0.9); NEUT % 78.4 % (16.0-70.0); PLATELET COUNT 266 TH/MM3 (150-450); RED BLOOD COUNT 3.63 MIL/MM3 (4.00-5.30); RED CELL DISTRIBUTION WIDTH 13.3 % (11.6-17.2); WHITE BLOOD COUNT 6.8 TH/MM3 (4.0-11.0)
[2017-07-23 07:36] LABS: BICARBONATE 28.2 MEQ/L (21.0-32.0); CALCIUM 8.5 MG/DL (8.5-10.1); CREATININE 0.49 MG/DL (0.50-1.00)
[2017-07-23] MEDS: NS + KCL 20 MEQ INJ 1,000 ML IV SCH (08:49)
[2017-07-23] MEDS: LISINOPRIL 20 MG TAB PO SCH (10:03)
[2017-07-23] MEDS: cefTRIAXone INJ 1,000 MG in SODIUM CHLORIDE 0.9% INJ 100 ML IV SCH (10:03)
[2017-07-23] MEDS: amLODIPine BESYLATE 5 MG TAB PO SCH (10:03)
--- NOTE | 2017-07-23 10:20 | HHI.PR ---
Subjective Subjective Notes had N/V yesterday, feels better today. reports 2 BMs. pain controlled Objective Vitals/I&O Vital Signs Date Time Temp Pulse Resp B/P (MAP) Pulse Ox O2 Delivery O2 Flow Rate FiO2 07/23/17 08:00 97.5 76 16 146/76 (99) 93 07/22/17 22:11 Room Air 07/21/17 10:33 2.00 07/21/17 10:15 21 Labs Laboratory Tests Test 07/23/17 05:42 White Blood Count 6.8 Red Blood Count 3.63 Hemoglobin 12.0 Hematocrit 35.5 Mean Corpuscular Volume 97.7 Mean Corpuscular Hemoglobin 33.1 Mean Corpuscular Hemoglobin Concent 33.9 Red Cell Distribution Width 13.3 Platelet Count 266 Mean Platelet Volume 8.7 Neutrophils (%) (Auto) 78.4 Lymphocytes (%) (Auto) 10.1 Monocytes (%) (Auto) 9.8 Eosinophils (%) (Auto) 1.3 Basophils (%) (Auto) 0.4 Neutrophils # (Auto) 5.3 Lymphocytes # (Auto) 0.7 Monocytes # (Auto) 0.7 Eosinophils # (Auto) 0.1 Basophils # (Auto) 0.0 CBC Comment DIFF FINAL Differential Comment Blood Urea Nitrogen 7 Creatinine 0.49 Random Glucose 72 Calcium Level 8.5 Magnesium Level 2.0 Sodium Level 140 Potassium Level 3.8 Chloride Level 102 Carbon Dioxide Level 28.2 Anion Gap 10 Estimat Glomerular Filtration Rate 130 Abdomen: Post-op tenderness, BS normal Narrative Exam abdomen mildly distended, BS present Wound Wound : Wound Location: Abdomen Appearance: Clean & Dry A/P Assessment and Plan POD 4 cecal volvulus keep on clears for now HL IV, 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
--- NOTE | 2017-07-23 14:28 | HHI.PR ---
Subjective Remarks Follow-up abdominal pain, nausea/vomiting, hypokalemia. The patient states that her pain is much better today. Nausea and vomiting have resolved. She is tolerating liquids. Objective Vitals Vital Signs Date Time Temp Pulse Resp B/P (MAP) Pulse Ox O2 Delivery O2 Flow Rate FiO2 07/23/17 12:00 97.8 70 16 152/82 (105) 94 07/23/17 08:00 97.5 76 16 146/76 (99) 93 07/23/17 06:00 17 07/23/17 03:40 97.6 66 16 135/78 (97) 96 07/23/17 00:20 97.4 89 17 129/77 (94) 93 07/22/17 23:33 18 07/22/17 22:11 Room Air 07/22/17 21:34 17 07/22/17 21:15 97.2 88 18 156/89 (111) 100 07/22/17 16:00 97.3 82 16 196/88 (124) 94 I/O 07/22/17 07/22/17 07/22/17 07/23/17 07/23/17 07/23/17 07:00 15:00 23:00 07:00 15:00 23:00 Intake Total 915 ml 942 ml 1120 ml 1141 ml Balance 915 ml 942 ml 1120 ml 1141 ml Intake Oral 360 ml 600 ml 1020 ml IV Total 555 ml 342 ml 100 ml 1141 ml # Voids 2 6 5 # Bowel Movements 0 1 0 Result Diagram: 07/23/17 0542 07/23/17 0542 Imaging Last Impressions Abdomen/Pelvis CT 07/19/17 0200 Signed Impressions: Service Date/Time: Wednesday, July 19, 2017 02:27 - CONCLUSION: Large gas-distended loop of bowel between the right lobe liver and hemidiaphragm probably representing a displaced hypermobile cecum. No dilated loops of small bowel seen. No evidence of free intraperitoneal gas. Moderate amount of free fluid in the right upper quadrant and minimal free fluid in the pelvis. Rainer Mckeon MD ADDENDUM: The case has been discussed with Dr. Caballero. The displaced the cecum is in the right upper quadrant underneath the right hemidiaphragm. This is atypical for mesento-axial cecal volvulus where a the distended cecum is usually in the LEFT upper quadrant. There is, however a curved configuration to the mesentery in the right upper quadrant and there may be some twisting of the inferior portion of the loop. Differential considerations include loop-type cecal volvulus and cecal bascule, which is also a variant of cecal volvulus.. Rainer Mckeon MD Abdomen X-Ray 07/19/17 0000 Signed Impressions: Service Date/Time: Wednesday, July 19, 2017 04:42 - CONCLUSION: Gastric tube tip projects within the stomach however the side-port is 2.2 cm above the diaphragm. Rainer Mckeon MD Objective Remarks General: No acute distress. Heart: Regular rate and rhythm. No murmur. Lungs: Clear to auscultation bilaterally. No wheezes, rales, or rhonchi. Breathing is nonlabored. Abdomen: Soft, appropriately tender to palpation, moderately distended. Extremities: No lower extremity edema. Psych: Alert and oriented. Procedures 07/19/17 exploratory laparotomy, right hemicolectomy with stapled anastomosis Urinary Catheter: No Vascular Central Line Catheter: No A/P Assessment and Plan 1. 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 Management per surgery. Continue pain control. Off BLOGS MANAGER pump now. Await return of bowel function. Clear liquid diet. Continue antiemetics. Per general surgery, will advance diet once abdominal distention and nausea/ vomiting have improved. 2. Anemia: H&H improved. Likely lower secondary to hemodilution. Monitor labs. 3. Hypertension: Continue lisinopril, amlodipine. Vasotec as needed. 4. Hypokalemia: Improved. 5. Tobacco abuse: Patient counseled to quit smoking. 6. Binge drinking disorder without withdrawal: Patient has been counseled. 7. DVT prophylaxis: SCDs. Discharge Planning Home with home health when cleared by general surgery. Awaiting return of bowel function. Tha Chris MD Jul 23, 2017 14:27
[2017-07-23] MEDS: MORPHINE SULFATE 4 MG/ML INJ IV PUSH PRN ×2 (15:03→19:49)
[2017-07-23] MEDS: SODIUM CHLORIDE 0.9% FLUSH 10 ML FLUSH IV FLUSH PRN (15:04)
[2017-07-24] MEDS: LEVOTHYROXINE SODIUM 150 MCG TAB PO SCH (06:09)
[2017-07-24 06:21] LABS: BICARBONATE 27.3 MEQ/L (21.0-32.0); CREATININE 0.37 MG/DL (0.50-1.00)
[2017-07-24 08:00] VITALS: BP 157/82; PULSE 73; RESP 18; TEMP 97.7; O2SAT 94
[2017-07-24] MEDS: amLODIPine BESYLATE 5 MG TAB PO SCH (08:11)
[2017-07-24] MEDS: LISINOPRIL 20 MG TAB PO SCH (08:11)
--- NOTE | 2017-07-24 10:29 | HHI.PR ---
Subjective Remarks Patient states she wants to go home as soon as possible Discussed with patient and RN and case management Await surgical clearance If cleared can possibly be discharged later today Objective Vitals Vital Signs Date Time Temp Pulse Resp B/P (MAP) Pulse Ox O2 Delivery O2 Flow Rate FiO2 07/24/17 08:00 97.7 73 18 157/82 (107) 94 07/24/17 04:26 18 07/24/17 00:04 Room Air 07/23/17 23:00 97.9 67 17 138/77 (97) 94 07/23/17 19:54 17 07/23/17 19:05 97.9 72 18 159/77 (104) 93 07/23/17 16:00 97.8 78 16 145/72 (96) 92 07/23/17 12:00 97.8 70 16 152/82 (105) 94 I/O 07/23/17 07/23/17 07/23/17 07/24/17 07/24/17 07/24/17 07:00 15:00 23:00 07:00 15:00 23:00 Intake Total 1120 ml 1741 ml 960 ml Balance 1120 ml 1741 ml 960 ml Intake Oral 1020 ml 600 ml 960 ml IV Total 100 ml 1141 ml # Voids 5 3 5 # Bowel Movements 0 1 0 Result Diagram: 07/23/17 0542 07/24/17 0423 Other Results Laboratory Tests Test 07/22/17 06:45 07/23/17 05:42 07/24/17 04:23 White Blood Count 7.9 TH/MM3 6.8 TH/MM3 Red Blood Count 3.30 MIL/MM3 3.63 MIL/MM3 Hemoglobin 11.2 GM/DL 12.0 GM/DL Hematocrit 32.0 % 35.5 % Mean Corpuscular Volume 97.1 FL 97.7 FL Mean Corpuscular Hemoglobin 33.9 PG 33.1 PG Mean Corpuscular Hemoglobin Concent 34.9 % 33.9 % Red Cell Distribution Width 13.4 % 13.3 % Platelet Count 223 TH/MM3 266 TH/MM3 Mean Platelet Volume 8.5 FL 8.7 FL Neutrophils (%) (Auto) 88.0 % 78.4 % Lymphocytes (%) (Auto) 6.0 % 10.1 % Monocytes (%) (Auto) 4.8 % 9.8 % Eosinophils (%) (Auto) 1.0 % 1.3 % Basophils (%) (Auto) 0.2 % 0.4 % Neutrophils # (Auto) 6.9 TH/MM3 5.3 TH/MM3 Lymphocytes # (Auto) 0.5 TH/MM3 0.7 TH/MM3 Monocytes # (Auto) 0.4 TH/MM3 0.7 TH/MM3 Eosinophils # (Auto) 0.1 TH/MM3 0.1 TH/MM3 Basophils # (Auto) 0.0 TH/MM3 0.0 TH/MM3 CBC Comment DIFF FINAL DIFF FINAL Differential Comment Blood Urea Nitrogen 4 MG/DL 7 MG/DL 6 MG/DL Creatinine 0.41 MG/DL 0.49 MG/DL 0.37 MG/DL Random Glucose 82 MG/DL 72 MG/DL 70 MG/DL Albumin 2.5 GM/DL Calcium Level 8.4 MG/DL 8.5 MG/DL 8.0 MG/DL Phosphorus Level 2.8 MG/DL Magnesium Level 1.6 MG/DL 2.0 MG/DL Sodium Level 138 MEQ/L 140 MEQ/L 138 MEQ/L Potassium Level 3.1 MEQ/L 3.8 MEQ/L 3.4 MEQ/L Chloride Level 99 MEQ/L 102 MEQ/L 102 MEQ/L Carbon Dioxide Level 27.4 MEQ/L 28.2 MEQ/L 27.3 MEQ/L Anion Gap 12 MEQ/L 10 MEQ/L 9 MEQ/L Estimat Glomerular Filtration Rate 160 ML/MIN 130 ML/MIN 180 ML/MIN Imaging Last Impressions Abdomen/Pelvis CT 07/19/17 0200 Signed Impressions: Service Date/Time: Wednesday, July 19, 2017 02:27 - CONCLUSION: Large gas-distended loop of bowel between the right lobe liver and hemidiaphragm probably representing a displaced hypermobile cecum. No dilated loops of small bowel seen. No evidence of free intraperitoneal gas. Moderate amount of free fluid in the right upper quadrant and minimal free fluid in the pelvis. Rainer Mckeon MD ADDENDUM: The case has been discussed with Dr. Caballero. The displaced the cecum is in the right upper quadrant underneath the right hemidiaphragm. This is atypical for mesento-axial cecal volvulus where a the distended cecum is usually in the LEFT upper quadrant. There is, however a curved configuration to the mesentery in the right upper quadrant and there may be some twisting of the inferior portion of the loop. Differential considerations include loop-type cecal volvulus and cecal bascule, which is also a variant of cecal volvulus.. Rainer Mckeon MD Abdomen X-Ray 07/19/17 0000 Signed Impressions: Service Date/Time: Wednesday, July 19, 2017 04:42 - CONCLUSION: Gastric tube tip projects within the stomach however the side-port is 2.2 cm above the diaphragm. Rainer Mckeon MD Objective Remarks GENERAL: Awake alert and oriented 3 talkative and cooperative SKIN: Warm and dry. HEAD: Atraumatic. Normocephalic. EYES: Pupils equal and round. No scleral icterus. No injection or drainage. Extraocular muscles intact ENT: No nasal bleeding or discharge. Mucous membranes pink and moist. Tongue is midline NECK: Trachea midline. No JVD. Supple CARDIOVASCULAR: Regular rate and rhythm. S1-S2 no S3 or S4 RESPIRATORY: No accessory muscle use. Clear to auscultation. Breath sounds equal bilaterally. GASTROINTESTINAL: Abdomen soft, non-tender, nondistended. Hepatic and splenic margins not palpable. Midline incision is dressed MUSCULOSKELETAL: Extremities without clubbing, cyanosis, or edema. No obvious deformities. NEUROLOGICAL: Awake and alert. No obvious cranial nerve deficits. Motor grossly within normal limits. 4 out of 5 muscle strength in the arms and legs. Normal speech. PSYCHIATRIC: Appropriate mood and affect; insight and judgment normal. Procedures 07/19/17 exploratory laparotomy, right hemicolectomy with stapled anastomosis Medications and IVs Current Medications Ondansetron HCl (Zofran Inj) 4 mg STK-MED ONCE .ROUTE ; Start 07/19/17 at 01:41 ; Stop 07/19/17 at 01:42; Status DC Ondansetron HCl (Zofran Inj) 4 mg ONCE ONCE IV PUSH Last administered on at 01:48; Start 07/19/17 at 01:45; Stop 07/19/17 at 01:46; Status DC Sodium Chloride 1,000 ml @ 999 mls/hr BOLUS ONCE IV Last administered on 07/19at 01:47; Start 07/19/17 at 01:45; Stop 07/19/17 at 02:45; Status DC Morphine Sulfate (Morphine Inj) 4 mg ONCE ONCE IV PUSH Last administered on at 02:20; Start 07/19/17 at 02:00; Stop 07/19/17 at 02:02; Status DC Ondansetron HCl (Zofran Inj) 4 mg ONCE ONCE IVP Last administered on at 02:17; Start 07/19/17 at 02:00; Stop 07/19/17 at 02:02; Status DC Sodium Chloride 1,000 ml @ 1,000 mls/hr Q1H IV Last administered on 07/19/17at 02:17; Start 07/19/17 at 02:00; Stop 07/19/17 at 02:59; Status DC Sodium Chloride (NS Flush) 2 ml UNSCH PRN IV FLUSH FLUSH AFTER USING IV ACCESS Last administered on 07/23/17at 15:04; Start 07/19/17 at 02:00 Sodium Chloride 1,000 ml @ 999 mls/hr BOLUS ONCE IV Last administered on 07/19at 03:31; Start 07/19/17 at 03:15; Stop 07/19/17 at 04:15; Status DC Morphine Sulfate (Morphine Inj) 4 mg ONCE ONCE IV PUSH Last administered on at 03:33; Start 07/19/17 at 03:30; Stop 07/19/17 at 03:31; Status DC Levofloxacin/ Dextrose 100 ml @ 100 mls/hr NOW ONCE IV Last administered on at 06:30; Start 07/19/17 at 06:30; Stop 07/19/17 at 07:29; Status DC Metronidazole 100 ml @ 100 mls/hr NOW ONCE IV Last administered on 07/19/17at 06:31; Start 07/19/17 at 06:30; Stop 07/19/17 at 07:29; Status DC Lactated Ringer's 1,000 ml @ 30 mls/hr Q24H PRN IV SEE LABEL COMMENTS Last administered on 07/19/17at 06:10; Start 07/19/17 at 06:45; Stop 07/22/17 at 06:44 ; Status DC Sodium Chloride 500 ml @ 30 mls/hr [id number] PRN IV SEE LABEL COMMENTS; Start at 06:45; Stop 07/22/17 at 06:44; Status DC Metoprolol Tartrate (Lopressor) 25 mg ESCALATOR OPERATOR PRN PO SEE LABEL COMMENTS; Start 07/19/17 at 06:45; Stop 07/22/17 at 06:44; Status DC Povidone Iodine (Betadine 5% Antisepsis Kit) 1 applic ESCALATOR OPERATOR PRN EACH NARE SEE LABEL COMMENTS; Start 07/19/17 at 06:45; Stop 07/22/17 at 06:44; Status DC Chlorhexidine Gluconate (Chlorhexidine 2% Cloth) 3 pack ESCALATOR OPERATOR PRN TOPICAL SEE LABEL COMMENTS; Start 07/19/17 at 06:45; Stop 07/22/17 at 06:44; Status DC Fentanyl Citrate (fentaNYL INJ) 250 mcg STK-MED ONCE .ROUTE ; Start 07/19/17 at 06:50; Stop 07/19/17 at 06:51; Status DC Bupivacaine HCl/ Epinephrine Bitart (Sensorcaine-Epinephrine Pf 0.5% Inj) 30 ml STK-MED ONCE .ROUTE Last administered on 07/19/17at 07:10; Start 07/19/17 at 07: 11; Stop 07/19/17 at 07:12; Status DC Morphine Sulfate (Morphine Inj) 2 mg Q2H PRN IV PUSH PAIN SCALE 6 TO 10 Last administered on 07/21/17at 15:37; Start 07/19/17 at 07:30; Stop 07/21/17 at 17:09 ; Status DC Famotidine (Pepcid Inj) 20 mg Q12HR IV PUSH Last administered on 07/21/17at 08: 12; Start 07/19/17 at 09:00; Stop 07/21/17 at 17:09; Status DC Albuterol/ Ipratropium (Duoneb Neb) 1 ampule Q4HR NEB PRN INH WHEEZING; Start 07/19/17 at 07:30; Stop 07/21/17 at 17:09; Status DC Miscellaneous Information 1 Q361D XX ; Start 07/19/17 at 07:30; Stop 07/21/17 at 17:09; Status DC Chlorhexidine Gluconate (Chlorhexidine 2% Cloth) 3 pack Taper DAILY@04 TOP ; Start 07/20/17 at 04:00; Stop 07/21/17 at 17:09; Status DC Chlorhexidine Gluconate (Chlorhexidine 2% Cloth) 3 pack UNSCH PRN TOP HYGIENIC CARE; Start 07/19/17 at 07:30; Stop 07/21/17 at 17:09; Status DC Ceftriaxone Sodium 1000 mg/ Sodium Chloride 100 ml @ 200 mls/hr Q24H IV Last administered on 07/23/17at 10:03; Start 07/19/17 at 09:00; Stop 07/23/17 at 10:18 ; Status DC Metronidazole 100 ml @ 100 mls/hr Q8H IV Last administered on 07/23/17at 06:09 ; Start 07/19/17 at 15:00; Stop 07/23/17 at 10:18; Status DC Lactated Ringer's 1,000 ml @ 35 mls/hr Q24H IV Last administered on 07/21/17at 20:30; Start 07/19/17 at 08:00; Stop 07/22/17 at 08:42; Status DC Fentanyl Citrate (fentaNYL INJ) 250 mcg STK-MED ONCE .ROUTE ; Start 07/19/17 at 08:15; Stop 07/19/17 at 08:16; Status DC Morphine Sulfate (Morphine Inj) 8 mg STK-MED ONCE .ROUTE ; Start 07/19/17 at 08: 15; Stop 07/19/17 at 08:16; Status DC Sugammadex Sodium (Bridion Inj) 200 mg STK-MED ONCE IV PUSH ; Start 07/19/17 at 08:53; Stop 07/19/17 at 08:54; Status DC Ketorolac Tromethamine (Toradol Inj) 30 mg Q6H PRN IVP PAIN SCALE 1 TO 5 Last administered on 07/20/17at 10:21; Start 07/19/17 at 09:15; Stop 07/21/17 at 17:09 ; Status DC Ondansetron HCl (Zofran Inj) 4 mg Q4H PRN IV PUSH NAUSEA OR VOMITING Last administered on 07/20/17at 17:58; Start 07/19/17 at 09:15; Stop 07/21/17 at 17:09 ; Status DC Diphenhydramine HCl (Benadryl Inj) 50 mg Q6H PRN IVP ITCHING Last administered on 07/20/17at 20:49; Start 07/19/17 at 09:15; Stop 07/21/17 at 17:09; Status DC Miscellaneous Information (Post-op Orders (for Pharmacy)) STAT ONCE XX ; Start 07/19/17 at 09:15; Stop 07/19/17 at 09:16; Status DC Miscellaneous Information 1 ONCE ONCE XX ; Start 07/19/17 at 09:15; Stop at 09:30; Status DC Naloxone HCl (Narcan Inj) 0.4 mg UNSCH PRN IV PUSH RESPIRATORY RATE LESS THAN 10; Start 07/19/17 at 09:15; Stop 07/21/17 at 17:09; Status DC Morphine Sulfate (Morphine 1 Mg/ ml ELASTIC ASSEMBLER) 30 mg UNSCH IV Last administered on at 11:47; Start 07/19/17 at 09:15; Stop 07/21/17 at 17:09; Status DC ELASTIC ASSEMBLER Dosage Infused (Pha) 1 Q8HR .XX Last administered on 07/21/17at 06:00; Start 07/19/17 at 14:00; Stop 07/21/17 at 17:09; Status DC Morphine Sulfate (*morphine INJ PERIprocedure ONLY) 10 mg STK-MED ONCE .ROUTE Last administered on 07/19/17at 09:10; Start 07/19/17 at 09:10; Stop 07/19/17 at 09:11; Status DC Miscellaneous Information ALL NURSING DEPARTME... UNSCH PRN .XX SEE LABEL COMMENTS; Start 07/19/17 at 09:04; Stop 07/20/17 at 09:03; Status DC Lisinopril (Prinivil) 20 mg DAILY PO Last administered on 07/24/17at 08:11; Start 07/20/17 at 09:00 Parenteral Electrolytes 1,000 ml @ As Directed STK-MED ONCE IV ; Start at 12:00; Stop 07/20/17 at 14:52; Status DC Levothyroxine Sodium (Synthroid) 150 mcg DAILY@0600 PO Last administered on at 06:09; Start 07/21/17 at 06:00 Lidocaine HCl (Xylocaine-Mpf 1% Inj) 5 ml STK-MED ONCE OTHER ; Start 07/19/17 at 12:00; Stop 07/20/17 at 14:52; Status DC Rocuronium [place] (Zemuron Inj) 100 mg STK-MED ONCE IV PUSH ; Start 07/19/17 at 12:00; Stop 07/20/17 at 14:52; Status DC Neostigmine Methylsulfate (Prostigmine Inj) 5 mg STK-MED ONCE IV PUSH ; Start at 12:00; Stop 07/20/17 at 14:52; Status DC Glycopyrrolate (Robinul Inj) 1 mg STK-MED ONCE IV PUSH ; Start 07/19/17 at 12:00 ; Stop 07/20/17 at 14:52; Status DC Phenylephrine HCl (Neosynephrine/ NS 1000 Mcg/10ml Syr) 1,000 mcg STK-MED ONCE IV ; Start 07/19/17 at 12:00; Stop 07/20/17 at 14:52; Status DC Succinylcholine Chloride (Quelicin Inj) 100 mg STK-MED ONCE IV PUSH ; Start at 12:00; Stop 07/20/17 at 14:52; Status DC Dexamethasone Sodium Phosphate (Decadron Inj) 8 mg STK-MED ONCE IV ; Start 07/19 at 12:00; Stop 07/20/17 at 14:52; Status DC Ondansetron HCl (Zofran Inj) 4 mg STK-MED ONCE IV ; Start 07/19/17 at 12:00; Stop 07/20/17 at 14:52; Status DC Propofol (Diprivan 200 Mg/20 ml Inj) 200 mg STK-MED ONCE IV ; Start 07/19/17 at 12:00; Stop 07/20/17 at 14:52; Status DC Oxycodone HCl (Roxicodone) 10 mg Q4H PRN PO PAIN SCALE 6 TO 10 Last administered on 07/24/17at 03:46; Start 07/21/17 at 17:15 Morphine Sulfate (Morphine Inj) 2 mg Q3H PRN IV PUSH Pain 3-5; if unable to take PO; Start 07/21/17 at 17:15; Stop 07/21/17 at 18:27; Status DC Morphine Sulfate (Morphine Inj) 4 mg Q3H PRN IV PUSH Pain 6-10;if unable to take PO; Start 07/21/17 at 17:15; Stop 07/21/17 at 18:27; Status DC Morphine Sulfate (Morphine Inj) 4 mg Q3H PRN IV PUSH BREAKTHROUGH PAIN; Start 07/21/17 at 17:15; Stop 07/21/17 at 18:27; Status DC Oxycodone HCl (Roxicodone) 5 mg Q4H PRN PO PAIN SCALE 3 TO 5 Last administered on 07/24/17at 08:12; Start 07/21/17 at 17:15 Naloxone HCl (Narcan Inj) 0.4 mg UNSCH PRN IV PUSH SEE LABEL COMMENTS; Start at 17:15 Enalaprilat (Vasotec Inj) 1.25 mg Q6H PRN IV PUSH SBP>160, DBP>90 Last administered on 07/21/17at 23:40; Start 07/21/17 at 17:30 Naloxone HCl (Narcan Inj) 0.4 mg UNSCH PRN IV PUSH RESPIRATORY RATE LESS THAN 10; Start 07/21/17 at 18:30; Stop 07/23/17 at 10:18; Status DC Morphine Sulfate (Morphine 1 Mg/ ml ELASTIC ASSEMBLER) 30 mg UNSCH IV Last administered on at 18:58; Start 07/21/17 at 18:30; Stop 07/21/17 at 19:08; Status DC ELASTIC ASSEMBLER Dosage Infused (Pha) 1 Q8HR .XX Last administered on 07/23/17at 06:00; Start 07/21/17 at 22:00; Stop 07/23/17 at 10:18; Status DC Dextrose (D50w (Syr) Inj) 50 ml NOW ONCE IV ; Start 07/21/17 at 18:45; Stop at 18:46; Status Cancel Morphine Sulfate (Morphine 1 Mg/ ml ELASTIC ASSEMBLER) 30 mg UNSCH IV ; Start 07/21/17 at 19: 15; Stop 07/21/17 at 20:03; Status DC Morphine Sulfate (Morphine 1 Mg/ ml ELASTIC ASSEMBLER) 30 mg UNSCH IV ; Start 07/21/17 at 20: 15; Stop 07/23/17 at 10:18; Status DC Ondansetron HCl (Zofran Inj) 4 mg Q6HR PRN IV PUSH NAUSEA OR VOMITING Last administered on 07/22/17at 20:58; Start 07/22/17 at 08:30 Potassium Chloride/Sodium Chloride 1,000 ml @ 42 mls/hr [id number] IV Last administered on 07/22/17 12:27; Start 07/22/17 at 09:00; Stop 07/23/17 at 10:18 ; Status DC Potassium Chloride (KCl) 40 meq ONCE ONCE PO Last administered on 07/22/17 12 :26; Start 07/22/17 at 09:00; Stop 07/22/17 at 09:01; Status DC Amlodipine Besylate (Norvasc) 5 mg DAILY PO Last administered on 07/24/17 08: 11; Start 07/22/17 at 09:00 Prochlorperazine Edisylate (Compazine Inj) 5 mg Q4H PRN IV PUSH NAUSEA OR VOMITING Last administered on 07/23/17 19:49; Start 07/23/17 at 01:00 Morphine Sulfate (Morphine Inj) 4 mg Q3H PRN IV PUSH PAIN SCALE 5 TO 10 Last administered on 07/23/17 19:49; Start 07/23/17 at 10:15 A/P Assessment and Plan 1. 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 Management per surgery. Continue pain control. Off ELASTIC ASSEMBLER pump now. Await return of bowel function. Clear liquid diet. Continue antiemetics. Per general surgery, will advance diet once abdominal distention and nausea/ vomiting have improved. 2. Anemia: H&H improved. Likely lower secondary to hemodilution. Monitor labs. 3. Hypertension: Continue lisinopril, amlodipine. Vasotec as needed. 4. Hypokalemia: Improved. 5. Tobacco abuse: Patient counseled to quit smoking. 6. Binge drinking disorder without withdrawal: Patient has been counseled. 7. DVT prophylaxis: SCDs. Possible discharge later today if cleared by surgery Wants to go home Discharge Planning Discharge today if cleared by her surgeon Larry Woodall DO Jul 24, 2017 10:29
[2017-07-24] MEDS ORDERED: OXYC-392 PO (10:34)
[2017-07-24] MEDS ORDERED: SENN1TAB86 PO (10:34)
[2017-07-24] MEDS ORDERED: LISI-515 PO (10:34)
[2017-07-24] MEDS ORDERED: LEVO150T7 PO (10:34)
[2017-07-24] MEDS ORDERED: AMLO5 PO (10:34)
[2017-07-24] MEDS ORDERED: NICO14DI T-DERMAL (10:36)
--- NOTE | 2017-07-24 10:41 | HHI.DS ---
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 - Volvulus Diagnosis: Principal Status: Acute (2) Dehydration ICD Code: E86.0 - Dehydration Diagnosis: Principal Status: Acute (3) Tobacco abuse ICD Code: Z72.0 - Tobacco use Diagnosis: Secondary (4) Hypertension ICD Code: I10 - Essential (primary) hypertension Diagnosis: Secondary Procedures 07/19/17 exploratory laparotomy, right hemicolectomy with stapled anastomosis Brief History - From Admission 57-year-old lady with history of thyroid cancer status post thyroidectomy, and probable history of hypertension since patient is on lisinopril now presented to [place] emergency room complaining on severe abdominal pain that started yesterday morning, associated with multiple episodes of nausea and vomiting. 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 She was transferred to [facility] under the care of operations support specialist service and Dr. Gonzalez from surgery was consulted. On arrival, patient was taken immediately to the operating room where she underwent exploratory laparotomy with right hemicolectomy with stapled anastomosis. Patient was seen postop in PACU, she is doing well, awake, abdominal pain is controlled with DIRECTOR HAIR, denies shortness of breath, chest pain, palpitations. She is scheduled to go to the surgical floor. Anesthesia record reviewed, EBL 75 cc , received 1600 mL's crystalloid. CBC/BMP: 07/23/17 0542 07/24/17 0423 Significant Findings Laboratory Tests Test 07/22/17 06:45 07/23/17 05:42 07/24/17 04:23 Red Blood Count 3.30 MIL/MM3 (4.00-5.30) 3.63 MIL/MM3 (4.00-5.30) Hemoglobin 11.2 GM/DL (11.6-15.3) Hematocrit 32.0 % (35.0-46.0) Neutrophils (%) (Auto) 88.0 % (16.0-70.0) 78.4 % (16.0-70.0) Lymphocytes (%) (Auto) 6.0 % (9.0-44.0) Lymphocytes # (Auto) 0.5 TH/MM3 (1.0-4.8) 0.7 TH/MM3 (1.0-4.8) Blood Urea Nitrogen 4 MG/DL (7-18) 6 MG/DL (7-18) Creatinine 0.41 MG/DL (0.50-1.00) 0.49 MG/DL (0.50-1.00) 0.37 MG/DL (0.50-1.00) Albumin 2.5 GM/DL (3.4-5.0) Calcium Level 8.4 MG/DL (8.5-10.1) 8.0 MG/DL (8.5-10.1) Potassium Level 3.1 MEQ/L (3.5-5.1) 3.4 MEQ/L (3.5-5.1) Monocytes (%) (Auto) 9.8 % (0.0-8.0) Random Glucose 72 MG/DL (74-106) 70 MG/DL (74-106) Imaging Last Impressions Abdomen/Pelvis CT 07/19/17 0200 Signed Impressions: Service Date/Time: Wednesday, July 19, 2017 02:27 - CONCLUSION: Large gas-distended loop of bowel between the right lobe liver and hemidiaphragm probably representing a displaced hypermobile cecum. No dilated loops of small bowel seen. No evidence of free intraperitoneal gas. Moderate amount of free fluid in the right upper quadrant and minimal free fluid in the pelvis. Rainer Mckeon MD ADDENDUM: The case has been discussed with Dr. Caballero. The displaced the cecum is in the right upper quadrant underneath the right hemidiaphragm. This is atypical for mesento-axial cecal volvulus where a the distended cecum is usually in the LEFT upper quadrant. There is, however a curved configuration to the mesentery in the right upper quadrant and there may be some twisting of the inferior portion of the loop. Differential considerations include loop-type cecal volvulus and cecal bascule, which is also a variant of cecal volvulus.. Rainer Mckeon MD Abdomen X-Ray 07/19/17 0000 Signed Impressions: Service Date/Time: Wednesday, July 19, 2017 04:42 - CONCLUSION: Gastric tube tip projects within the stomach however the side-port is 2.2 cm above the diaphragm. Rainer Mckeon MD PE at Discharge GENERAL: Awake alert and oriented 3 talkative and cooperative SKIN: Warm and dry. HEAD: Atraumatic. Normocephalic. EYES: Pupils equal and round. No scleral icterus. No injection or drainage. Extraocular muscles intact ENT: No nasal bleeding or discharge. Mucous membranes pink and moist. Tongue is midline NECK: Trachea midline. No JVD. Supple CARDIOVASCULAR: Regular rate and rhythm. S1-S2 no S3 or S4 RESPIRATORY: No accessory muscle use. Clear to auscultation. Breath sounds equal bilaterally. GASTROINTESTINAL: Abdomen soft, non-tender, nondistended. Hepatic and splenic margins not palpable. Midline incision is dressed MUSCULOSKELETAL: Extremities without clubbing, cyanosis, or edema. No obvious deformities. NEUROLOGICAL: Awake and alert. No obvious cranial nerve deficits. Motor grossly within normal limits. 4 out of 5 muscle strength in the arms and legs. Normal speech. PSYCHIATRIC: Appropriate mood and affect; insight and judgment normal. Hospital Course 57-year-old lady with history of thyroid cancer status post thyroidectomy, and probable history of hypertension since patient is on lisinopril now presented to [place] emergency room complaining on severe abdominal pain that started yesterday morning, associated with multiple episodes of nausea and vomiting. 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 She was transferred to [facility] under the care of operations support specialist service and Dr. Gonzalez from surgery was consulted. On arrival, patient was taken immediately to the operating room where she underwent exploratory laparotomy with right hemicolectomy with stapled anastomosis. Patient was seen postop in PACU, she is doing well, awake, abdominal pain is controlled with DIRECTOR HAIR, denies shortness of breath, chest pain, palpitations. She is scheduled to go to the surgical floor. Anesthesia record reviewed, EBL 75 cc , received 1600 mL's crystalloid. FOUND TO HAVE A CECAL VOLVULUS UNDERWENT SURGERY IS NOW HAVING BM AND WANTS DIET ADVANCED AND TO BE DCED TO HOME DC TO HOME IF CLEARED BY SURGERY REPLACE POTASSIUM RX WRITTEN FOR PAIN AND HTN AND CONSTIPATION DW RN AND PT AND CM Pt Condition on Discharge: Good Discharge Disposition: Discharge Home Discharge Time: <= 30 minutes Discharge Instructions DIET: Follow Instructions for: Heart Healthy Diet Speech Therapy-Diet Recommends: Regular Activities you can perform: Regular-No Restrictions Other Activity Instructions: No tub bath May shower Follow up Referrals: PCP Follow-up - 1 Week Surgical - 1 Week with Dinesh Gonzalez MD New Medications: Nicotine Patch (Nicotine Patch) 14 Mg/24 Hr Patch 14 MG T-DERMAL DAILY for Smoking Cessation, #30 PATCH 0 Refills Sennosides/Docusate Sodium (Colace 2-in-1 Tablet) 8.6 Mg-50 Mg Tablet 2 TAB PO HS for Constipation, #60 TAB Amlodipine (Norvasc) 5 Mg Tab 5 MG PO DAILY for Blood Pressure Management, #30 TAB Oxycodone (Oxycodone) 5 Mg Tab 10 MG PO Q4H PRN for PAIN SCALE 6 TO 10, #40 TAB Continued Medications: Levothyroxine (Levothyroxine) 150 Mcg Tab 150 MCG PO DAILY for Thyroid, #30 TAB 0 Refills (This prescription has been renewed) Lisinopril (Lisinopril) 20 Mg Tab 20 MG PO DAILY for Blood Pressure Management, #30 TAB 0 Refills (This prescription has been renewed) Larry Woodall DO Jul 24, 2017 10:40
[2017-07-24 12:00] VITALS: BP 175/82; PULSE 77; RESP 18; TEMP 97.9; O2SAT 95
[2017-07-24] MEDS ORDERED: POTASSIUM CHLORIDE 20 MEQ CONTROLLED RELEASE TAB PO ONE (12:00)
--- NOTE | 2017-07-24 16:39 | HHI.PR ---
Subjective Subjective Notes Tolerated dinner Ready to go home Objective Vitals/I&O Vital Signs Date Time Temp Pulse Resp B/P (MAP) Pulse Ox O2 Delivery O2 Flow Rate FiO2 07/24/17 12:00 97.9 77 18 175/82 (113) 95 07/24/17 00:04 Room Air 07/21/17 10:33 2.00 07/21/17 10:15 21 Labs Laboratory Tests Test 07/24/17 04:23 Blood Urea Nitrogen 6 Creatinine 0.37 Random Glucose 70 Calcium Level 8.0 Sodium Level 138 Potassium Level 3.4 Chloride Level 102 Carbon Dioxide Level 27.3 Anion Gap 9 Estimat Glomerular Filtration Rate 180 Cardiovascular: Regular Lungs: Clear Abdomen: Other (dressing removed; midline incision c/d/i with darwin ) Extremities: No edema A/P Assessment and Plan 57 year old female POD5 ex lap for cecal volvulus -Regular diet -Pain controlled -GS clear for DC -Follow up August 01 in the office Nanette Roman/Performance Instructor ARNP Jul 24, 2017 16:39
== END 2017-07-24 17:29 | disposition home or self-care (01) | DRG 331 ==
LOC: PHED 00:56 → PHEDA 04:11 → HSDI 06:21 → N06A 12:12
PROVIDERS: ADMIT Hospitalist; ATTEND Hospitalist
PROC: 0DTH0ZZ Resection of Cecum, Open Approach (ICD-10-PCS; principal; 2017-07-19 06:44)
DX: K56.2 Volvulus (principal); I10 Essential (primary) hypertension; K56.7 Ileus, unspecified; E89.0 Postprocedural hypothyroidism; Z85.850 Personal history of malignant neoplasm of thyroid; E86.0 Dehydration; D64.9 Anemia, unspecified; E87.6 Hypokalemia; Z72.89 Other problems related to lifestyle; F17.210 Nicotine dependence, cigarettes, uncomplicated
CPT/HCPCS: 43753; 74018; 74176; 76937; 80048; 80053; 80069; 81001; 83690; 83735; 84100; 85025; 85610; 88307; 94150; 96361; 96374; 96375; 96376; J0330; J0696; J0780; J1100; J1200; J1885; J1956; J2270; J2370; J2405; J2710; J3010; J3480; J7030; J7120